=== PATIENT | male | born 1940 | race African-American/Black ===

== ENCOUNTER 2018-02-27 05:42 | Inpatient (IN) | payer MEDICARE, MEDICAID ==
[~2018-02-27] VITALS: Ht 180.3 cm; Wt 106.6 kg
[~2018-02-27 05:42] MED LIST: COLCRYS0.6 M1 PO; INDOMETHACIN75 MG ORAL
--- NOTE | 2018-02-27 06:25 | Emergency Room Report ---
History of Present Illness General Chief Complaint: Pain Source: Patient (Rick Guzman MD) Present Illness HPI Patient is a 77-year-old male who presented after increased right hand numbness. Patient reports having onset of symptoms approximate one half days ago. The patient denies any recent trauma. He reports being diabetic. He denies any chest discomfort or increased pain with exertion. He denies severe headache or neck pain.The patient edition reports having some medial right thigh pain for approximately 2 weeks but does not recall any recent injuries. (Rick Guzman MD) Allergies: Coded Allergies: NO KNOWN DRUG ALLERGIES (Unverified Allergy, Unknown, 01/24/15) Patient History Past Medical History: see triage record Reviewed Nursing Documentation: PMH: Agreed; PSxH: Agreed (Rick Guzman MD) Nursing Documentation-PMH Hx Hypertension: Yes Hx Diabetes: Yes (Rick Guzman MD) Review of Systems All Other Systems: negative except mentioned in HPI (Rick Guzman MD) Physical Exam Vital Signs Date Time Temp Pulse Resp B/P (MAP) Pulse Ox O2 Delivery O2 Flow Rate FiO2 02/27/18 05:44 97.6 57 16 135/68 96 Room Air 97.5 Sp02 EP Interpretation: reviewed, normal General Appearance: normal inspection, well appearing, no apparent distress, alert, GCS 15, non-toxic Head: atraumatic ENT: normal ENT inspection, hearing grossly normal, normal voice Neck: normal inspection, full range of motion, supple, no bony tend Respiratory: normal inspection, lungs clear, normal breath sounds, no respiratory distress, no retraction, no wheezing Cardiovascular #1: regular rate, rhythm, no edema Gastrointestinal: normal inspection, normal bowel sounds, non tender, soft, no guarding, no hernia Genitourinary: no CVA tenderness Musculoskeletal: normal inspection, back normal, normal range of motion Neurologic: normal inspection, alert, oriented x3, responsive, it engineer III-XII nml as tested, motor strength/tone normal, normal gait, speech normal, no pronator Psychiatric: normal inspection, judgement/insight normal, mood/affect normal Skin: normal inspection, normal color, no rash (Rick Guzman MD) Medical Decision Making Diagnostic Impression: Primary Impression: CVA (cerebral vascular accident) ER Course Patient presented for right hand paresthesias. Differential diagnosis included wasn't limited to CVA, intracranial hemorrhage, multiple sclerosis, the peripheral neuropathy, arterial occlusion among others. The CT imaging of the head was ordered due to patient's symptoms.EKG interpreted by me showed sinus bradycardia with a rate of [address] or T wave changes. (Rick Guzman MD) ER Course This patient was turned over to me by Dr. Guzman. Please see his full history and physical. Briefly, this patient had presented with a day of numbness in his right hand. He also had some right groin pain. He underwent CT of the head which was unremarkable. Given the patient's history, I was concerned for CVA, so I obtained an MRI brain. This did show a small acute lacunar infarct. The patient was given aspirin orally here in the emergency department. He is admitted to the telemetry floor for further monitoring and for further investigation of the etiology of CVA. Patient's laboratory workup is negative and noncontributory. He is admitted for further evaluation and treatment. Laboratory Tests Test 02/27/18 08:30 White Blood Count 9.9 K/UL (4.8-10.8) Red Blood Count 5.35 M/UL (4.70-6.10) Hemoglobin 15.8 G/DL (14.2-18.0) Hematocrit 45.4 % (42.0-52.0) Mean Corpuscular Volume 85 FL (80-99) Mean Corpuscular Hemoglobin 29.4 PG (27.0-31.0) Mean Corpuscular Hemoglobin Concent 34.7 G/DL (32.0-36.0) Red Cell Distribution Width 11.3 % (11.6-14.8) L Platelet Count 211 K/UL (150-450) Mean Platelet Volume 8.7 FL (6.5-10.1) Neutrophils (%) (Auto) 42.8 % (45.0-75.0) L Lymphocytes (%) (Auto) 44.7 % (20.0-45.0) Monocytes (%) (Auto) 8.0 % (1.0-10.0) Eosinophils (%) (Auto) 3.5 % (0.0-3.0) H Basophils (%) (Auto) 1.0 % (0.0-2.0) Prothrombin Time 9.9 SEC (9.30-11.50) Prothrombin Time INR 0.9 (0.9-1.1) PTT 27 SEC (23-33) Sodium Level 137 MMOL/L (136-145) Potassium Level 4.6 MMOL/L (3.5-5.1) Chloride Level 102 MMOL/L (98-107) Carbon Dioxide Level 30 MMOL/L (21-32) Anion Gap 5 mmol/L (5-15) Blood Urea Nitrogen 21 mg/dL (7-18) H Creatinine 1.1 MG/DL (0.55-1.30) Estimate Glomerular Filtration Rate mL/min (>60) Glucose Level 129 MG/DL (74-106) H Calcium Level 9.3 MG/DL (8.5-10.1) Total Bilirubin 0.3 MG/DL (0.2-1.0) Aspartate Amino Transferase (AST) 21 U/L (15-37) Alanine Aminotransferase (ALT) 29 U/L (12-78) Alkaline Phosphatase 102 U/L (46-116) Troponin I 0.017 ng/mL (0.000-0.056) Total Protein 8.2 G/DL (6.4-8.2) Albumin 3.4 G/DL (3.4-5.0) Globulin 4.8 g/dL Albumin/Globulin Ratio 0.7 (1.0-2.7) L (CHITRA HOLDER D.O.) EKG Diagnostic Results Rate: bradycardiac Rhythm: other - S.nicole ST Segments: no acute changes (CHITRA HOLDER D.O.) Rhythm Strip Diag. Results EP Interpretation: yes Rate: 50's Rhythm: no PVC's, no ectopy, other Other Impression S.nicole (CHITRA HOLDER D.O.) Last Vital Signs Date Time Temp Pulse Resp B/P (MAP) Pulse Ox O2 Delivery O2 Flow Rate FiO2 02/27/18 05:44 97.6 57 16 135/68 96 Room Air 97.5 (Rick Guzman MD) Disposition: ADMITTED INPATIENT Condition: Stable Referrals: NOT CHOSEN IPA/,REFERRING (PCP) Rick Guzman MD Feb 27, 2018 06:24 CHITRA HOLDER.OLena Feb 27, 2018 09:25
[2018-02-27 07:43] VITALS: BP 140/70
[2018-02-27 08:48] LABS: EOSINOPHILS % (AUTO) 3.5 % (0.0-3.0); HEMATOCRIT 45.4 % (42.0-52.0); HEMOGLOBIN 15.8 G/DL (14.2-18.0); LYMPHOCYTES % (AUTO) 44.7 % (20.0-45.0); MEAN CORPUSCULAR VOLUME 85 FL (80-99); NEUTROPHILS % (AUTO) 42.8 % (45.0-75.0); PLATELET COUNT 211 K/UL (150-450); RED BLOOD COUNT 5.35 M/UL (4.70-6.10); RED CELL DISTRIBUTION WIDTH 11.3 % (11.6-14.8); WHITE BLOOD COUNT 9.9 K/UL (4.8-10.8)
--- NOTE | 2018-02-27 08:53 | Diagnostic Imaging Report ---
Indications: Dizziness left arm numbness Technique: Spiral acquisitions obtained through the brain. Angled axial and coronal 5 x 5 mm slices were reconstructed. Total dose length product 1372.57 mGycm. CTDI vol(s) 70.38 mGy. Dose reduction achieved using automated exposure control Comparison: None. Findings: No acute intracranial hemorrhage or edema. No mass effect nor midline shift. There is periventricular deep white matter low-attenuation consistent with chronic ischemic change. There is age-related enlargement of the ventricles and extra-axial CSF spaces. Is evidence of prior bilateral cataract surgery. Visualized orbits and sinuses are otherwise unremarkable old lacunar infarcts are seen in the bilateral basal ganglia and the right deep white matter Impression: Chronic and age-related changes, as described. Negative for acute intracranial bleed or mass effect The CT scanner at [facility] is accredited by the [employer] and the scans are performed using protocols designed to limit radiation exposure to as low as reasonably achievable to attain images of sufficient resolution adequate for diagnostic evaluation.
--- NOTE | 2018-02-27 08:53 | Diagnostic Imaging Report ---
Indication: Weakness Technique: sagittal T1 fast spin echo, axial T1 FLAIR, axial T2 FLAIR, axial T2 FS PROPELLER, axial T2* GRE, sagittal T2 FLAIR, axial diffusion weighted images. ADC and exponential ADC maps generated Comparison: CT scan of one hour earlier Findings: There is a small focus of restricted diffusion in the left thalamus. This does not demonstrate any T2 abnormality No other foci of restricted diffusion to suggest acute infarction demonstrated. No acute hemorrhage nor edema. No mass effect nor midline shift. Multiple tiny old lacunar infarcts are seen in the bilateral basal ganglia and rothman radiata. There is age-related enlargement of the ventricles and extra-axial CSF spaces. There is considerable periventricular deep white matter high T2 signal. The vascular flow voids are preserved. Visualized sinuses are unremarkable. Is evidence of prior bilateral cataract surgery Impression: Positive for small acute lacunar infarct in the left thalamus Negative for acute intracranial bleed or mass effect Age-related volume loss Multiple old bilateral basal ganglia and bilateral rothman radiata lacunar infarcts There is extensive bilateral periventricular deep white matter T2 hyperintensity, most likely on the basis of chronic ischemic change. Demyelinating disease also a possibility but less likely
[2018-02-27 08:57] VITALS: BP 130/36
[2018-02-27 09:01] LABS: INR 0.9 (0.9-1.1)
[2018-02-27 09:06] LABS: ANION GAP 5 mmol/L (5-15); BLOOD UREA NITROGEN 21 mg/dL (7-18); CALCIUM 9.3 MG/DL (8.5-10.1); CARBON DIOXIDE 30 MMOL/L (21-32); CHLORIDE 102 MMOL/L (98-107); CREATININE 1.1 MG/DL (0.55-1.30); POTASSIUM 4.6 MMOL/L (3.5-5.1); SODIUM 137 MMOL/L (136-145)
[2018-02-27] MEDS ORDERED: UNOBMED (09:10)
[2018-02-27 09:11] LABS: ALANINE AMINOTRANSFERASE 29 U/L (12-78); ALBUMIN 3.4 G/DL (3.4-5.0); ALBUMIN/GLOBULIN RATIO 0.7 (1.0-2.7); ALKALINE PHOSPHATASE 102 U/L (46-116); ASPARTATE AMINO TRANSFERASE 21 U/L (15-37); BILIRUBIN,TOTAL 0.3 MG/DL (0.2-1.0)
[2018-02-27 10:04] VITALS: BP 134/64
[2018-02-27] MEDS ORDERED: NORVASC10 MG ORAL (10:41)
[2018-02-27] MEDS ORDERED: GLIPIZIDE10 MG PO (10:41)
[2018-02-27] MEDS ORDERED: Albuterol/Ipratropium 3ml neb HHN PRN (10:45)
--- NOTE | 2018-02-27 10:46 | Consultation ---
History of Present Illness General Date patient seen: Feb 27, 2018 Chief Complaint: Pain Present Illness HPI Patient is a 77-year-old male with hx of DM who presented after increased right hand numbness, approximate one half day prior to admission. The patient denies any recent trauma. He denies any chest discomfort or increased pain with exertion. He is admitted to telemetry for further work up. Allergies: Coded Allergies: NO KNOWN DRUG ALLERGIES (Unverified Allergy, Unknown, 01/24/15) Medication History Scheduled Amlodipine Besylate (Norvasc), 10 MG ORAL DAILY, (Reported) Colchicine (Colcrys), 0.6 MG PO ONCE Glipizide (Glipizide), 10 MG PO BIDAC, (Reported) Indomethacin* (Indomethacin*), 50 MG ORAL THREE TIMES A DAY Miscellaneous Medications Unable to Obtain Medications (Unable To Obtain Meds), (Reported) Patient History Healthcare decision maker Resuscitation status Advanced Directive on File Past Medical/Surgical History Past Medical/Surgical History: (1) Diabetes (2) History of acute gouty arthritis Review of Systems All Other Systems: negative except mentioned in HPI Physical Exam General Appearance: WD/WN Lines, tubes and drains: peripheral HEENT: normocephalic, atraumatic Neck: non-tender, normal alignment Respiratory/Chest: chest wall non-tender, lungs clear Cardiovascular/Chest: normal peripheral pulses Abdomen: normal bowel sounds Genitourinary/Rectal: normal genital exam Extremities: normal range of motion Skin Exam: normal pigmentation Neurologic: research program coordinator II-XII grossly normal Last 24 Hour Vital Signs Date Time Temp Pulse Resp B/P (MAP) Pulse Ox O2 Delivery O2 Flow Rate FiO2 02/27/18 10:12 97.5 59 17 130/36 98 Room Air 97.5 02/27/18 10:04 97.5 66 17 134/64 97 Room Air 97.5 02/27/18 08:57 97.5 59 17 130/36 98 Room Air 97.5 02/27/18 07:43 97.5 61 16 140/70 99 Room Air 97.5 02/27/18 05:44 97.6 57 16 135/68 96 Room Air 97.5 Intake and Output 02/26/18 02/27/18 19:00 07:00 Intake Total 0 ml Balance 0 ml Intake Oral 0 ml Laboratory Tests Test 6/7/18 08:30 White Blood Count 9.9 K/UL (4.8-10.8) Red Blood Count 5.35 M/UL (4.70-6.10) Hemoglobin 15.8 G/DL (14.2-18.0) Hematocrit 45.4 % (42.0-52.0) Mean Corpuscular Volume 85 FL (80-99) Mean Corpuscular Hemoglobin 29.4 PG (27.0-31.0) Mean Corpuscular Hemoglobin Concent 34.7 G/DL (32.0-36.0) Red Cell Distribution Width 11.3 % (11.6-14.8) L Platelet Count 211 K/UL (150-450) Mean Platelet Volume 8.7 FL (6.5-10.1) Neutrophils (%) (Auto) 42.8 % (45.0-75.0) L Lymphocytes (%) (Auto) 44.7 % (20.0-45.0) Monocytes (%) (Auto) 8.0 % (1.0-10.0) Eosinophils (%) (Auto) 3.5 % (0.0-3.0) H Basophils (%) (Auto) 1.0 % (0.0-2.0) Prothrombin Time 9.9 SEC (9.30-11.50) Prothromb Time International Ratio 0.9 (0.9-1.1) Activated Partial Thromboplast Time 27 SEC (23-33) Sodium Level 137 MMOL/L (136-145) Potassium Level 4.6 MMOL/L (3.5-5.1) Chloride Level 102 MMOL/L (98-107) Carbon Dioxide Level 30 MMOL/L (21-32) Anion Gap 5 mmol/L (5-15) Blood Urea Nitrogen 21 mg/dL (7-18) H Creatinine 1.1 MG/DL (0.55-1.30) Estimat Glomerular Filtration Rate mL/min (>60) Glucose Level 129 MG/DL (74-106) H Calcium Level 9.3 MG/DL (8.5-10.1) Total Bilirubin 0.3 MG/DL (0.2-1.0) Aspartate Amino Transf (AST/SGOT) 21 U/L (15-37) Alanine Aminotransferase (ALT/SGPT) 29 U/L (12-78) Alkaline Phosphatase 102 U/L (46-116) Troponin I 0.017 ng/mL (0.000-0.056) Total Protein 8.2 G/DL (6.4-8.2) Albumin 3.4 G/DL (3.4-5.0) Globulin 4.8 g/dL Albumin/Globulin Ratio 0.7 (1.0-2.7) L Height (Feet): 5 Height (Inches): 11.00 Weight (Pounds): 235 Medications Current Medications Medications (Trade) Dose Ordered Sig/Raji Route PRN Reason Start Time Stop Time Status Last Admin Dose Admin Acetaminophen (Tylenol) 650 mg Q4H PRN ORAL fever 02/27/18 10:45 03/29/18 10:44 UNV Albuterol/ Ipratropium (Albuterol/ Ipratropium) 3 ml EVERY 4 HOURS PRN HHN Shortness of Breath 02/27/18 10:45 03/04/18 10:44 UNV Clonidine HCl (Catapres Tab) 0.1 mg Q4H PRN ORAL For High Blood Pressure 02/27/18 10:45 03/29/18 10:44 UNV Dextrose (Dextrose 50%) STAT PRN IV Hypoglycemia 02/27/18 10:45 03/29/18 10:44 UNV Dextrose (Dextrose 50%) STAT PRN IV Hypoglycemia 02/27/18 10:45 03/29/18 10:44 UNV Heparin Sodium (Porcine) (Heparin 5000 units/ml) 5,000 units EVERY 12 HOURS SUBQ 02/27/18 21:00 03/29/18 20:59 UNV Insulin Aspart (NovoLOG) BEFORE MEALS AND HS SUBQ 02/27/18 11:30 03/29/18 11:29 UNV Nitroglycerin (Ntg) 0.4 mg Q5M X 3 DOSES PRN SL Prn Chest Pain 02/27/18 10:45 03/29/18 10:44 UNV Ondansetron HCl (Zofran) 4 mg Q6H PRN IVP Nausea & Vomiting 02/27/18 10:45 03/29/18 10:44 UNV Polyethylene Glycol (Miralax) 17 gm HSPRN PRN ORAL Constipation 02/27/18 10:45 03/29/18 10:44 UNV Promethazine HCl/ Codeine (Phenergan with Codeine) 5 ml Q4H PRN ORAL For Cough 02/27/18 10:45 03/29/18 10:44 UNV Temazepam (Restoril) 15 mg HSPRN PRN ORAL Insomnia 02/27/18 10:45 03/06/18 10:44 UNV Assessment/Plan Problem List: (1) CVA (cerebral vascular accident) ICD Codes: I63.9 - Cerebral infarction, unspecified SNOMED: 205290168 (2) Diabetes ICD Codes: E11.9 - Type 2 diabetes mellitus without complications SNOMED: 37183860 (3) History of acute gouty arthritis ICD Codes: Z87.39 - Personal history of other diseases of the musculoskeletal system and connective tissue SNOMED: 596286699 Assessment/Plan telemetry monitoring echo doppler of carotid artery sliding scale diabetic diet pt/ot dvt prophylaxis symptomatic treatment Torrie Pak MD Feb 27, 2018 10:46
[2018-02-27] MEDS ORDERED: Promethazine/Codeine 5ml UD ORAL PRN (11:00)
[2018-02-27] MEDS ORDERED: Nitroglycerin Subl 0.4mg tab SL PRN (11:00)
[2018-02-27] MEDS: NovoLOG Insulin Flexpen SUBQ SCH ×3 (11:30→20:35)
[2018-02-27] MEDS: Norco 5mg/325mg tab ORAL PRN ×2 (13:08→20:32)
[2018-02-27] MEDS ORDERED: Enoxaparin 30mg Inj SUBQ SCH (16:00)
[2018-02-27] MEDS: Enoxaparin 80mg Inj SUBQ SCH (16:42)
--- NOTE | 2018-02-27 18:55 | Consultation ---
Consult Note Consult Note NEUROLOGY CONSULTATION: Full note dictated #[id number] 77 y/o, RH, BM with PH of HTN, DM, DL who for the last 2-3 days has had right groin pain from a muscle strain. Yesterday night at ~ 10 PM he noted an unusual sensation in the right upper extremity in an opera length glove distribution. The problem continued when he woke up this morning at ~5 AM and he thus came into the [facility] ER. A brain MRI was done and it reveled an acute stroke. He feels better now. ON EXAM: Shifting exophoria. Globally diminished DTRs. Limp on right leg due to groin pain. IMPRESSION: Acute left thalamic infarct. 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 Hypertensive/diabetic/dyslipidemic CVD. REC: Rx of Hypertensive/diabetic/dyslipidemic risk factors. Observe. Kevon Cruz M.D., M.S.P.H. KEVON CRUZ Feb 27, 2018 18:55
--- NOTE | 2018-02-27 19:00 | History and Physical Report ---
DATE OF ADMISSION: 02/27/2018 CONSULTANTS: 1. Miles Cruz M.D. 2. Torrie Pak M.D. CHIEF COMPLAINT: Weakness in the right arm, lacunar infarct, and CVA. BRIEF HISTORY: The patient is a 77-year-old male, who lives at home, presents with 1-day history of increased weakness on the right hand. It persisted. The patient came in today to [facility], diagnosed with small lacunar infarct, and CVA, admitted to telemetry for further care. Currently calm, sitting in bed, weakness has somewhat resolved, and he is eating. No complaint. PAST MEDICAL HISTORY: Hypertension and diabetes. PAST SURGICAL HISTORY: Abdominal hernia. MEDICATIONS: Norvasc, heparin, MiraLAX, Restoril, Jar[place], NovoLog, Zofran, nitroglycerin, Phenergan with Codeine, albuterol, Tylenol, Catapres, and aspirin. ALLERGIES: Denies. SOCIAL HISTORY: No smoking. No alcohol. No intravenous drug abuse. FAMILY HISTORY: Noncontributory. REVIEW OF SYSTEMS: No chest pain. No shortness of breath. No nausea, vomiting, or diarrhea. PHYSICAL EXAMINATION: GENERAL: Calm in bed, oriented x3, no acute distress. VITAL SIGNS: Temperature is 97 degrees, pulse 59, respirations 17, and blood pressure 130/36. CARDIOVASCULAR: No murmur. LUNGS: Distant and clear. ABDOMEN: Bowel sounds positive. Nontender and nondistended. EXTREMITIES: No cyanosis, clubbing, or edema. NEUROLOGIC: The patient moves all extremities, slightly weak x4. LABORATORY AND DIAGNOSTIC DATA: CBC is normal. BMP shows BUN 21, glucose 129, troponin 0.017, otherwise, BMP is normal. INR is 0.9 and PTT is 27. ASSESSMENT: 1. Right arm weakness. 2. Small lacunar infarct. 3. Cerebrovascular accident. 4. Diabetes. 5. Hypertension. 6. Arthritis. 7. Gout. PLAN: Blood pressure and blood sugar control. Neurology followup. OT, PT, and dietary evaluation. CBC and BMP in the morning. We will continue to follow this patient. Kasi Pimentel D.O. DR: DG JOB#: [id number] CC:
[2018-02-27 20:00] VITALS: BP 143/81
[2018-02-27] MEDS ORDERED: Isovue-370 150ml vial INJ PRN ×2 (20:00)
[2018-02-27] MEDS ORDERED: Heparin 5000 units/ml inj SUBQ SCH (21:00)
[2018-02-27] MEDS ORDERED: Miralax 17gm pkt ORAL PRN (21:00)
--- NOTE | 2018-02-27 21:29 | Consultation ---
DATE OF CONSULTATION: 02/27/2018 NEUROLOGY CONSULTATION CONSULTING PHYSICIAN: Miles Cruz M.D. REQUESTING PHYSICIAN: Kasi Pimentel D.O. HISTORY: Mr Sesar Espinal is a 77-year-old, right-handed, black gentleman, who does have a past history of hypertension, diabetes mellitus, and dyslipidemia. He has been taking care of his hypertension and diabetes relatively well, but says that he takes his cholesterol medicine off and on. He was functioning relatively well until 2 to 3 days ago when he pulled a muscle in his right groin and has had some right groin pain and problems walking. Then, yesterday at approximately 10 p.m., he suddenly noticed an unusual sensation in his right upper extremity that started in his fingers and went all the way to his elbow. It was a sensation of tingling, numbness and discomfort. He went to sleep and on awakening this morning at approximately 5 a.m., he continued to have similar symptoms. As a result of that, he came into the [facility] emergency room. He was evaluated in the emergency room with CT scan of the brain at first, which revealed no acute pathology, but then an MRI scan was done and revealed an acute stroke. At this point in time, he feels much better, the altered sensation is now more patchy in his right upper extremity and seems to be getting better. He denies any associated weakness on one side or the other, problems with speech, problems with language, problems with vision, problems with memory, or any other neurological symptoms. He also denies any similar symptoms in the past. PAST MEDICAL HISTORY: Significant for hypertension, diabetes mellitus, dyslipidemia, hernia surgery, and a squint since he was a child. FAMILY HISTORY: Significant for high blood pressure and diabetes mellitus in other family members. PERSONAL HISTORY: Home: He lives with his son. 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 Habits: He denies use of alcohol, tobacco, or illicit drugs. MEDICATIONS: Amlodipine, MiraLAX, Restoril, Lovenox, [place], insulin, Zofran, nitroglycerin, DuoNeb inhaler p.r.n., Phenergan with Codeine p.r.n., Tylenol p.r.n., and aspirin 325 mg that was given to him as a single dose. PHYSICAL EXAMINATION: GENERAL: He is a well-developed, well-nourished, slightly obese, black gentleman, lying in bed, in no acute distress. VITAL SIGNS: Pulse 54/minute and regular, blood pressure 130/36 mmHg, respirations 20/minute, and temperature 97.5 degrees Fahrenheit. HEAD: Normocephalic and atraumatic. EENT: Examination benign. NECK: No neck rigidity was observed. NEUROLOGIC EXAMINATION: MENTAL STATUS EXAMINATION: He was awake and alert. He was oriented to person, place, and time. He was able to recall 3/3 words immediately, after 1 minute and after 3 minutes on the second trial. He was able to remember presidents, Trump and Obama, but could not remember presidents prior to that. His mathematical skills were impaired. His visuospatial function was also impaired. SPEECH: He had no dysarthria. LANGUAGE: He had no aphasia. CRANIAL NERVE EXAMINATION: II: The visual duran were intact on confrontation testing. III, IV & : He had a shifting exophoria, but both eyes moved relatively well when tested individually. V: He had normal facial sensations and the temporales, masseters, and pterygoids functioned normally. VII: He had normal facial expressions and no facial asymmetry. VIII: He was able to hear well bilaterally and had no nystagmus. IX: The palate moved symmetrically on phonation. X: He had no hoarseness of voice. XI: The sternocleidomastoids and trapezii functioned normally. XII: The tongue was in the midline without any fasciculations or atrophy. MOTOR SYSTEM: The tone was normal in all four extremities. Examination of muscle mass revealed no focal wasting. Examination of power revealed grade 5/5 power. SENSORY EXAMINATION: He had intact sensations to pinprick, light touch, and graphesthesia. COORDINATION: He performed well on [id number] and [id number] testing. REFLEXES: Trace+ and bilaterally symmetrical at the biceps, triceps, brachioradialis, and knees, 0 at both ankles. The plantar responses were flexor bilaterally. STANCE: He had a normal stance. GAIT: He tended to drag his right leg when he walked, which he attributed to pain in his right groin. DIAGNOSTIC IMPRESSION: 1. Mr Sesar Espinal is a 77-year-old, right-handed, black gentleman, who does have a past history of hypertension, diabetes mellitus, and dyslipidemia. He apparently has not been taking care of his dyslipidemia, but says that he is controlling his high blood pressure and diabetes mellitus with medicines. In the early hours of last night, he suddenly developed right upper extremity altered sensation, which continued when he woke up this morning. As a result of that, he came to the hospital. At this point in time, the discomfort has improved significantly. 2. On neurological examination at this time, he does have a shifting exophoria, globally diminished deep tendon reflexes and a limp on the right side due to right groin pain. 3. The MRI scan of the brain reveals a small left thalamic infarct, but no other acute pathology. 4. Laboratory data obtained thus far revealed a relatively normal CBC, a relatively normal chemistry panel except for glucose elevated to 129 and BUN elevated to 21 and an INR of 0.9. 5. The patient's history, neurological examination, and laboratory data are most compatible with an acute left thalamic infarct causing dysesthesias involving his right upper extremity in an opera length glove distribution, which has now improved significantly. 6. The etiology for the infarct would be a small end artery occlusion. 7. The etiology for the small end artery occlusion would be hypertensive, diabetic, dyslipidemic, cerebrovascular disease. RECOMMENDATIONS: 1. The patient was given an explanation of the above-mentioned findings. 2. He should be treated aggressively for his small blood vessel cerebrovascular disease. His blood pressure goal should be equal to or less than 120/80 mmHg, his diabetic goal should be a hemoglobin A1c of less than 6% and his dyslipidemic goal should be an LDL of less than 70. 3. The patient will be started on Plavix 75 mg daily for secondary stroke prevention. 4. He was also encouraged to lose some weight over time. 5. He should be observed for the next day or so, and depending on how he fairs, further recommendations will be given. Thank you for entrusting me with the care of Mr. Kaba. I shall follow him with you. Miles Cruz M.D., M.S.P.H. DR: SAMIR JOB#: [id number] [id number]
[2018-02-28] VITALS: BP 125/64
[2018-02-28] MEDS: Norco 5mg/325mg tab ORAL PRN ×5 (00:32→19:37)
[2018-02-28 04:00] VITALS: BP 137/66
[2018-02-28] MEDS: NovoLOG Insulin Flexpen SUBQ SCH ×4 (06:23→21:00)
[2018-02-28 07:47] LABS: EOSINOPHILS % (AUTO) 3.6 % (0.0-3.0); HEMATOCRIT 41.2 % (42.0-52.0); HEMOGLOBIN 14.5 G/DL (14.2-18.0); LYMPHOCYTES % (AUTO) 51.4 % (20.0-45.0); MEAN CORPUSCULAR VOLUME 84 FL (80-99); MONOCYTES % (AUTO) 9.5 % (1.0-10.0); NEUTROPHILS % (AUTO) 34.5 % (45.0-75.0); PLATELET COUNT 193 K/UL (150-450); RED BLOOD COUNT 4.89 M/UL (4.70-6.10); RED CELL DISTRIBUTION WIDTH 11.1 % (11.6-14.8); WHITE BLOOD COUNT 7.8 K/UL (4.8-10.8)
[2018-02-28 07:58] LABS: ALANINE AMINOTRANSFERASE 27 U/L (12-78); ALBUMIN 2.9 G/DL (3.4-5.0); ALBUMIN/GLOBULIN RATIO 0.7 (1.0-2.7); ALKALINE PHOSPHATASE 90 U/L (46-116); ANION GAP 9 mmol/L (5-15); ASPARTATE AMINO TRANSFERASE 21 U/L (15-37); BILIRUBIN,TOTAL 0.3 MG/DL (0.2-1.0); BLOOD UREA NITROGEN 16 mg/dL (7-18); CALCIUM 8.7 MG/DL (8.5-10.1); CARBON DIOXIDE 26 MMOL/L (21-32); CHLORIDE 103 MMOL/L (98-107); CHOLESTEROL 182 MG/DL (< 200); CREATININE 0.9 MG/DL (0.55-1.30); HDL CHOLESTEROL 52 MG/DL (40-60); POTASSIUM 3.7 MMOL/L (3.5-5.1); SODIUM 138 MMOL/L (136-145); TRIGLYCERIDES 75 MG/DL (30-150)
[2018-02-28 08:00] VITALS: BP 132/57
[2018-02-28] MEDS: Enoxaparin 80mg Inj SUBQ SCH ×2 (10:11→21:27)
--- NOTE | 2018-02-28 11:49 | Diagnostic Imaging Report ---
Indication: CVA and focal weakness. Increasing weakness in the right hand. Technique: Continuous helical transaxial imaging of the neck was obtained from the aortic arch to the skull base during rapid intravenous contrast administration. Arterial phase of enhancement obtained. Coronal 2-D reformats were also obtained and maximum intensity projection images in multiple planes. Study obtained in a Siemens sensation [address] Automatic Exposure Control was utilized. Total Dose length Product (DLP): [address] Dose Index Volume (CTDIvol): 0.17, 0.17, 16.5, 16.5, 198, 58.86 mGy Comparison: None Findings: There is a high-grade stenosis demonstrated at the origin of the left ICA estimated at about 70%. There is also a moderate to high-grade stenosis demonstrated within the mid common carotid artery on the left side. This is estimated at 60%. There is mild calcific plaque at the origin of the right ICA. Stenosis is mild estimated at 40%. The remainder of the visualized portion of the ICA which is below the skull base appears widely patent. Both vertebral arteries are identified. No stenosis identified. There is some artifact at the level of the thoracic aorta. There is narrowing of intervertebral discs and accompanying endplate osteophyte formation. Hypertrophied facet joints also demonstrated.. Mild paraseptal bleb formation noted at the lung apices. IMPRESSION: 70-80% high-grade stenosis estimated within the proximal left ICA due to calcific plaque. 60-70% moderate to high-grade stenosis suspected within the mid left common carotid artery. 40% mild stenosis estimated at the origin of the right ICA. Widely patent vertebral arteries. Other incidental findings as above The CT scanner at [facility] is accredited by the [employer] and the scans are performed using dose optimization techniques as appropriate to a performed exam including Automatic Exposure control.
--- NOTE | 2018-02-28 12:32 | Cardiology Report ---
APPROVED REPORT EKG Measurement Heart [id number] Sinus bradycardia Nonspecific T wave abnormality Abnormal ECG
--- NOTE | 2018-02-28 12:40 | Pulmonology Progress Note ---
Assessment/Plan Problems: (1) CVA (cerebral vascular accident) (2) Diabetes (3) History of acute gouty arthritis Assessment/Plan MRI Impression: Positive for small acute lacunar infarct in the left thalamus CT angio Neck IMPRESSION: 70-80% high-grade stenosis estimated within the proximal left ICA due to calcific plaque. 60-70% moderate to high-grade stenosis suspected within the mid left common carotid artery. cardio to see the pt for clearance Vascular saw the patient monitor BP anti PLT agent as per Neuro Subjective Allergies: Coded Allergies: NO KNOWN DRUG ALLERGIES (Unverified Allergy, Unknown, 01/24/15) Objective Last 24 Hour Vital Signs Date Time Temp Pulse Resp B/P (MAP) Pulse Ox O2 Delivery O2 Flow Rate FiO2 02/28/18 11:13 97.0 02/28/18 10:10 67 132/57 02/28/18 08:05 67 20 Room Air 21 02/28/18 08:00 97.0 46 19 132/57 98 Room Air 97.0 02/28/18 04:00 48 02/28/18 04:00 97.7 50 18 137/66 98 Room Air 97.7 02/28/18 00:00 97.7 57 19 125/64 98 Room Air 97.7 02/28/18 00:00 57 02/27/18 20:00 52 02/27/18 20:00 98.1 52 18 143/81 94 Room Air 98.1 02/27/18 16:25 54 20 Room Air 21 02/27/18 16:00 49 Intake and Output 02/27/18 02/28/18 19:00 07:00 Intake Total 360 ml 240 ml Output Total 775 ml Balance 360 ml -535 ml Intake Oral 360 ml 240 ml Output Urine Total 775 ml # Voids 2 2 Laboratory Tests 02/28/18 06:05: White Blood Count 7.8, Red Blood Count 4.89, Hemoglobin 14.5, Hematocrit 41.2L, Mean Corpuscular Volume 84, Mean Corpuscular Hemoglobin 29.5, Mean Corpuscular Hemoglobin Concent 35.1, Red Cell Distribution Width 11.1L, Platelet Count 193, Mean Platelet Volume 8.4, Neutrophils (%) (Auto) 34.5L, Lymphocytes (%) (Auto) 51.4H, Monocytes (%) (Auto) 9.5, Eosinophils (%) (Auto) 3.6H, Basophils (%) ( Auto) 1.0, Prothrombin Time 10.3, Prothromb Time International Ratio 1.0, Activated Partial Thromboplast Time 29, Sodium Level 138, Potassium Level 3.7, Chloride Level 103, Carbon Dioxide Level 26, Anion Gap 9, Blood Urea Nitrogen 16 , Creatinine 0.9, Estimat Glomerular Filtration Rate , Glucose Level 99, Calcium Level 8.7, Total Bilirubin 0.3, Aspartate Amino Transf (AST/SGOT) 21, Alanine Aminotransferase (ALT/SGPT) 27, Alkaline Phosphatase 90, Total Protein 7.3, Albumin 2.9L, Globulin 4.4, Albumin/Globulin Ratio 0.7L, Triglycerides Level 75, Cholesterol Level 182, LDL Cholesterol 135H, HDL Cholesterol 52, Cholesterol/HDL Ratio 3.5, Thyroid Stimulating Hormone (TSH) 2.357 Current Medications Medications (Trade) Dose Ordered Sig/Raji Route PRN Reason Start Time Stop Time Status Last Admin Dose Admin Acetaminophen (Tylenol) 650 mg Q4H PRN ORAL fever 02/27/18 10:45 03/29/18 10:44 Acetaminophen/ Hydrocodone Bitart ([place] 5/325) 1 tab Q4H PRN ORAL Severe Pain (Pain Scale 7-10) 02/27/18 12:15 03/06/18 12:14 02/28/18 10:14 Albuterol/ Ipratropium (Albuterol/ Ipratropium) 3 ml Q4H PRN HHN Shortness of Breath 02/27/18 10:45 03/04/18 10:44 Amlodipine Besylate (Norvasc) 10 mg DAILY ORAL 02/28/18 09:00 03/30/18 08:59 02/28/18 10:10 Clonidine HCl (Catapres Tab) 0.1 mg Q4H PRN ORAL For High Blood Pressure 02/27/18 10:45 03/29/18 10:44 Clopidogrel Bisulfate (Plavix) 75 mg Q24H ORAL 02/27/18 20:00 03/29/18 19:59 02/27/18 20:31 Dextrose (Dextrose 50%) 25 ml STAT PRN IV Hypoglycemia 02/27/18 10:45 03/29/18 10:44 Dextrose (Dextrose 50%) 50 ml STAT PRN IV Hypoglycemia 02/27/18 10:45 03/29/18 10:44 Enoxaparin Sodium (Lovenox) 80 mg Q12HR SUBQ 02/27/18 16:00 03/29/18 15:59 02/28/18 10:11 Insulin Aspart (NovoLOG) BEFORE MEALS AND HS SUBQ 02/27/18 11:30 03/29/18 11:29 02/27/18 16:43 Iopamidol (Isovue-370 150ml) 150 ml NOW PRN INJ Radiology Procedure 02/27/18 20:00 03/01/18 19:56 Iopamidol (Isovue-370 150ml) 150 ml NOW PRN INJ Radiology Procedure 02/27/18 20:00 03/01/18 19:56 Nitroglycerin (Ntg) 0.4 mg Q5M X 3 DOSES PRN SL Prn Chest Pain 02/27/18 11:00 03/29/18 10:59 Ondansetron HCl (Zofran) 4 mg Q6H PRN IVP Nausea & Vomiting 02/27/18 11:00 03/29/18 10:59 Polyethylene Glycol (Miralax) 17 gm HSPRN PRN ORAL Constipation 02/27/18 21:00 03/29/18 20:59 Promethazine HCl/ Codeine (Phenergan with Codeine) 5 ml Q4H PRN ORAL For Cough 02/27/18 11:00 03/29/18 10:59 Temazepam (Restoril) 15 mg HSPRN PRN ORAL Insomnia 02/27/18 21:00 03/06/18 20:59 Torrie Pak MD Feb 28, 2018 12:40
--- NOTE | 2018-02-28 13:42 | Cardiology Report ---
APPROVED REPORT EXAM: Two-dimensional and M-mode echocardiogram with Doppler and color Doppler. INDICATION LV FUNCTION M-Mode DIMENSIONS IVSd1.4 (0.7-1.1cm)Left Atrium (MM)4.2 (1.6-4.0cm) LVDd5.5 (3.5-5.6cm)Aortic Root4.2 (2.0-3.7cm) PWd1.3 (0.7-1.1cm)Aortic Cusp Exc.2.1 (1.5-2.0cm) IVSs1.9 cm LVDs3.8 (2.5-4.0cm) PWs2.3 cm Technically difficult study due to poor acoustical windows. Normal left ventricular chamber size, systolic function and wall motion. Left ventricular ejection fraction estimated to be 60-65 %. Mild left ventricular hypertrophy by 2-D. No evidence of pericardial effusion. Mild Left atrial enlargement. Right cardiac chamber sizes are within normal limits. Mildly Focal aortic valve sclerosis with normal cusp excursion. Mildly Thickened mitral valve leaflets with normal excursion. Mitral annulus and aortic root calcification. Pulmonic valve not well visualized. Normal tricuspid valve structure. IVC at normal size with physiologic collapse. A color flow and spectral Doppler study was performed and revealed: No aortic regurgitation. Trace mitral regurgitation. Normal left ventricular diastolic function . Trace tricuspid regurgitation. Tricuspid systolic velocities suggests peak right ventricular systolic pressure of 22 mmHg, No Pulmonic regurgitation present.
--- NOTE | 2018-02-28 14:21 | Consultation ---
History of Present Illness General Date patient seen: Feb 28, 2018 Chief Complaint: Pain Present Illness HPI Patient with HTN, HLD, DM, CVA admitted for RUL numbness and found to have CVA. Carotid US shows high grade stenosis. Cardiology consulted for surgical clearance. No chest pain or shortness of breath Allergies: Coded Allergies: NO KNOWN DRUG ALLERGIES (Unverified Allergy, Unknown, 01/24/15) Medication History Scheduled Amlodipine Besylate (Norvasc), 10 MG ORAL DAILY, (Reported) Colchicine (Colcrys), 0.6 MG PO ONCE Glipizide (Glipizide), 10 MG PO BIDAC, (Reported) Indomethacin* (Indomethacin*), 50 MG ORAL THREE TIMES A DAY Miscellaneous Medications Unable to Obtain Medications (Unable To Obtain Meds), (Reported) Patient History Healthcare decision maker Resuscitation status Full Code Advanced Directive on File Review of Systems Constitutional: Reports: no symptoms Eye: Reports: no symptoms ENT: Reports: no symptoms Respiratory: Reports: no symptoms Cardiovascular: Reports: no symptoms Gastrointestinal: Reports: no symptoms Genitourinary: Reports: no symptoms Musculoskeletal: Reports: no symptoms Skin: Reports: no symptoms Neurological: Reports: numbness, paresthesia Endocrine: Reports: no symptoms Hematologic/Lymphatic: Reports: no symptoms Physical Exam General Appearance: no apparent distress Lines, tubes and drains: peripheral HEENT: normocephalic Neck: non-tender Respiratory/Chest: chest wall non-tender Cardiovascular/Chest: normal peripheral pulses Abdomen: normal bowel sounds Extremities: normal range of motion Neurologic: baffle mounter II-XII grossly normal Last 24 Hour Vital Signs Date Time Temp Pulse Resp B/P (MAP) Pulse Ox O2 Delivery O2 Flow Rate FiO2 02/28/18 11:13 97.0 02/28/18 10:10 67 132/57 02/28/18 08:11 46 02/28/18 08:05 67 20 Room Air 21 02/28/18 08:00 97.0 46 19 132/57 98 Room Air 97.0 02/28/18 04:00 48 02/28/18 04:00 97.7 50 18 137/66 98 Room Air 97.7 02/28/18 00:00 97.7 57 19 125/64 98 Room Air 97.7 02/28/18 00:00 57 02/27/18 20:00 52 02/27/18 20:00 98.1 52 18 143/81 94 Room Air 98.1 02/27/18 16:25 54 20 Room Air 21 02/27/18 16:00 49 Intake and Output 02/27/18 02/28/18 19:00 07:00 Intake Total 360 ml 240 ml Output Total 775 ml Balance 360 ml -535 ml Intake Oral 360 ml 240 ml Output Urine Total 775 ml # Voids 2 2 Laboratory Tests Test 02/28/18 06:05 White Blood Count 7.8 K/UL (4.8-10.8) Red Blood Count 4.89 M/UL (4.70-6.10) Hemoglobin 14.5 G/DL (14.2-18.0) Hematocrit 41.2 % (42.0-52.0) L Mean Corpuscular Volume 84 FL (80-99) Mean Corpuscular Hemoglobin 29.5 PG (27.0-31.0) Mean Corpuscular Hemoglobin Concent 35.1 G/DL (32.0-36.0) Red Cell Distribution Width 11.1 % (11.6-14.8) L Platelet Count 193 K/UL (150-450) Mean Platelet Volume 8.4 FL (6.5-10.1) Neutrophils (%) (Auto) 34.5 % (45.0-75.0) L Lymphocytes (%) (Auto) 51.4 % (20.0-45.0) H Monocytes (%) (Auto) 9.5 % (1.0-10.0) Eosinophils (%) (Auto) 3.6 % (0.0-3.0) H Basophils (%) (Auto) 1.0 % (0.0-2.0) Prothrombin Time 10.3 SEC (9.30-11.50) Prothromb Time International Ratio 1.0 (0.9-1.1) Activated Partial Thromboplast Time 29 SEC (23-33) Sodium Level 138 MMOL/L (136-145) Potassium Level 3.7 MMOL/L (3.5-5.1) Chloride Level 103 MMOL/L (98-107) Carbon Dioxide Level 26 MMOL/L (21-32) Anion Gap 9 mmol/L (5-15) Blood Urea Nitrogen 16 mg/dL (7-18) Creatinine 0.9 MG/DL (0.55-1.30) Estimat Glomerular Filtration Rate mL/min (>60) Glucose Level 99 MG/DL (74-106) Calcium Level 8.7 MG/DL (8.5-10.1) Total Bilirubin 0.3 MG/DL (0.2-1.0) Aspartate Amino Transf (AST/SGOT) 21 U/L (15-37) Alanine Aminotransferase (ALT/SGPT) 27 U/L (12-78) Alkaline Phosphatase 90 U/L (46-116) Total Protein 7.3 G/DL (6.4-8.2) Albumin 2.9 G/DL (3.4-5.0) L Globulin 4.4 g/dL Albumin/Globulin Ratio 0.7 (1.0-2.7) L Triglycerides Level 75 MG/DL (30-150) Cholesterol Level 182 MG/DL (< 200) LDL Cholesterol 135 mg/dL (<100) H HDL Cholesterol 52 MG/DL (40-60) Cholesterol/HDL Ratio 3.5 (3.3-4.4) Thyroid Stimulating Hormone (TSH) 2.357 uiU/mL (0.358-3.740) Height (Feet): 5 Height (Inches): 11.00 Weight (Pounds): 235 Medications Current Medications Medications (Trade) Dose Ordered Sig/Raji Route PRN Reason Start Time Stop Time Status Last Admin Dose Admin Acetaminophen (Tylenol) 650 mg Q4H PRN ORAL fever 02/27/18 10:45 03/29/18 10:44 Acetaminophen/ Hydrocodone Bitart ([place] 5/325) 1 tab Q4H PRN ORAL Severe Pain (Pain Scale 7-10) 02/27/18 12:15 03/06/18 12:14 02/28/18 10:14 Albuterol/ Ipratropium (Albuterol/ Ipratropium) 3 ml Q4H PRN HHN Shortness of Breath 02/27/18 10:45 03/04/18 10:44 Amlodipine Besylate (Norvasc) 10 mg DAILY ORAL 02/28/18 09:00 03/30/18 08:59 02/28/18 10:10 Clonidine HCl (Catapres Tab) 0.1 mg Q4H PRN ORAL For High Blood Pressure 6/7/18 10:45 03/29/18 10:44 Clopidogrel Bisulfate (Plavix) 75 mg Q24H ORAL 02/27/18 20:00 03/29/18 19:59 02/27/18 20:31 Dextrose (Dextrose 50%) 25 ml STAT PRN IV Hypoglycemia 02/27/18 10:45 03/29/18 10:44 Dextrose (Dextrose 50%) 50 ml STAT PRN IV Hypoglycemia 02/27/18 10:45 03/29/18 10:44 Enoxaparin Sodium (Lovenox) 80 mg Q12HR SUBQ 02/27/18 16:00 03/29/18 15:59 02/28/18 10:11 Insulin Aspart (NovoLOG) BEFORE MEALS AND HS SUBQ 02/27/18 11:30 03/29/18 11:29 02/28/18 13:57 Iopamidol (Isovue-370 150ml) 150 ml NOW PRN INJ Radiology Procedure 02/27/18 20:00 03/01/18 19:56 Iopamidol (Isovue-370 150ml) 150 ml NOW PRN INJ Radiology Procedure 02/27/18 20:00 03/01/18 19:56 Nitroglycerin (Ntg) 0.4 mg Q5M X 3 DOSES PRN SL Prn Chest Pain 02/27/18 11:00 03/29/18 10:59 Ondansetron HCl (Zofran) 4 mg Q6H PRN IVP Nausea & Vomiting 02/27/18 11:00 03/29/18 10:59 Polyethylene Glycol (Miralax) 17 gm HSPRN PRN ORAL Constipation 02/27/18 21:00 03/29/18 20:59 Promethazine HCl/ Codeine (Phenergan with Codeine) 5 ml Q4H PRN ORAL For Cough 02/27/18 11:00 03/29/18 10:59 Temazepam (Restoril) 15 mg HSPRN PRN ORAL Insomnia 02/27/18 21:00 03/06/18 20:59 Assessment/Plan Status: stable Assessment/Plan CVA HTN DM Carotid US 1) Aspirin for CAD 2) Plavix for CVA 3) High dose statin 4) BP control 5) Patient will need stress test for cardiac assessment of risk factors prior to surgery Matthew Serrano M.D. Feb 28, 2018 14:21
--- NOTE | 2018-02-28 16:13 | General Progress Note ---
Assessment/Plan Problem List: (1) HTN (hypertension) ICD Codes: I10 - Essential (primary) hypertension SNOMED: 81107523 (2) DVT (deep vein thrombosis) in ICD Codes: O22.30 - Deep phlebothrombosis in , unspecified trimester; I82.409 - Acute embolism and thrombosis of unspecified deep veins of unspecified lower extremity SNOMED: 34498729, 436204400 (3) Carotid stenosis ICD Codes: I65.29 - Occlusion and stenosis of unspecified carotid artery SNOMED: 01626502 (4) Diabetes ICD Codes: E11.9 - Type 2 diabetes mellitus without complications SNOMED: 26152858 (5) History of acute gouty arthritis ICD Codes: Z87.39 - Personal history of other diseases of the musculoskeletal system and connective tissue SNOMED: 787132406 (6) CVA (cerebral vascular accident) ICD Codes: I63.9 - Cerebral infarction, unspecified SNOMED: 217789749 Status: unchanged Assessment/Plan pt diet anticoag prn cbc bmp am cardio clearance for vasc procedure Subjective Constitutional: Reports: weakness Allergies: Coded Allergies: NO KNOWN DRUG ALLERGIES (Unverified Allergy, Unknown, 01/24/15) All Systems: reviewed and negative except above Subjective sitting calm Objective Last 24 Hour Vital Signs Date Time Temp Pulse Resp B/P (MAP) Pulse Ox O2 Delivery O2 Flow Rate FiO2 02/28/18 11:55 88 02/28/18 11:13 97.0 02/28/18 10:10 67 132/57 02/28/18 08:11 46 02/28/18 08:05 67 20 Room Air 21 02/28/18 08:00 97.0 46 19 132/57 98 Room Air 97.0 02/28/18 04:00 48 02/28/18 04:00 97.7 50 18 137/66 98 Room Air 97.7 02/28/18 00:00 97.7 57 19 125/64 98 Room Air 97.7 02/28/18 00:00 57 02/27/18 20:00 52 02/27/18 20:00 98.1 52 18 143/81 94 Room Air 98.1 02/27/18 16:25 54 20 Room Air 21 Intake and Output 02/27/18 02/28/18 19:00 07:00 Intake Total 360 ml 240 ml Output Total 775 ml Balance 360 ml -535 ml Intake Oral 360 ml 240 ml Output Urine Total 775 ml # Voids 2 2 Laboratory Tests 02/28/18 06:05: White Blood Count 7.8, Red Blood Count 4.89, Hemoglobin 14.5, Hematocrit 41.2L, Mean Corpuscular Volume 84, Mean Corpuscular Hemoglobin 29.5, Mean Corpuscular Hemoglobin Concent 35.1, Red Cell Distribution Width 11.1L, Platelet Count 193, Mean Platelet Volume 8.4, Neutrophils (%) (Auto) 34.5L, Lymphocytes (%) (Auto) 51.4H, Monocytes (%) (Auto) 9.5, Eosinophils (%) (Auto) 3.6H, Basophils (%) ( Auto) 1.0, Prothrombin Time 10.3, Prothromb Time International Ratio 1.0, Activated Partial Thromboplast Time 29, Sodium Level 138, Potassium Level 3.7, Chloride Level 103, Carbon Dioxide Level 26, Anion Gap 9, Blood Urea Nitrogen 16 , Creatinine 0.9, Estimat Glomerular Filtration Rate , Glucose Level 99, Calcium Level 8.7, Total Bilirubin 0.3, Aspartate Amino Transf (AST/SGOT) 21, Alanine Aminotransferase (ALT/SGPT) 27, Alkaline Phosphatase 90, Total Protein 7.3, Albumin 2.9L, Globulin 4.4, Albumin/Globulin Ratio 0.7L, Triglycerides Level 75, Cholesterol Level 182, LDL Cholesterol 135H, HDL Cholesterol 52, Cholesterol/HDL Ratio 3.5, Thyroid Stimulating Hormone (TSH) 2.357 Height (Feet): 5 Height (Inches): 11.00 Weight (Pounds): 235 General Appearance: lethargic EENT: normal ENT inspection Neck: normal alignment Cardiovascular: normal peripheral pulses, normal rate, regular rhythm Respiratory/Chest: chest wall non-tender, lungs clear, normal breath sounds Abdomen: normal bowel sounds, non tender, no organomegaly Extremities: normal inspection Edema: no edema noted Arm (L), no edema noted Arm (R), no edema noted Leg (L), no edema noted Leg (R), no edema noted Pedal (L), no edema noted Pedal (R), no edema noted Generalized Neurologic: responsive, motor weakness Skin: normal pigmentation, warm/dry Kasi Pimentel DO Feb 28, 2018 16:13
--- NOTE | 2018-02-28 16:35 | Neurology Progress Note ---
Interim History Interim History Interim History Mr. Kaba feels better. The numbness and altered sensation in his right hand has resolved completely. He denies any new neurologic symptoms. He specifically denies any weakness on one side or the other, numbness on one side or the other, problems with speech, problems with language or problems with vision. Review of Systems Neuro Review of Systems Benign. Objective Physical Exam Last Vital Signs Date Time Temp Pulse Resp B/P (MAP) Pulse Ox O2 Delivery O2 Flow Rate FiO2 02/28/18 11:55 88 02/28/18 11:13 97.0 02/28/18 10:10 132/57 02/28/18 08:05 20 Room Air 21 02/28/18 08:00 98 Laboratory Tests Test 02/28/18 06:05 White Blood Count 7.8 K/UL (4.8-10.8) Red Blood Count 4.89 M/UL (4.70-6.10) Hemoglobin 14.5 G/DL (14.2-18.0) Hematocrit 41.2 % (42.0-52.0) L Mean Corpuscular Volume 84 FL (80-99) Mean Corpuscular Hemoglobin 29.5 PG (27.0-31.0) Mean Corpuscular Hemoglobin Concent 35.1 G/DL (32.0-36.0) Red Cell Distribution Width 11.1 % (11.6-14.8) L Platelet Count 193 K/UL (150-450) Mean Platelet Volume 8.4 FL (6.5-10.1) Neutrophils (%) (Auto) 34.5 % (45.0-75.0) L Lymphocytes (%) (Auto) 51.4 % (20.0-45.0) H Monocytes (%) (Auto) 9.5 % (1.0-10.0) Eosinophils (%) (Auto) 3.6 % (0.0-3.0) H Basophils (%) (Auto) 1.0 % (0.0-2.0) Prothrombin Time 10.3 SEC (9.30-11.50) Prothromb Time International Ratio 1.0 (0.9-1.1) Activated Partial Thromboplast Time 29 SEC (23-33) Sodium Level 138 MMOL/L (136-145) Potassium Level 3.7 MMOL/L (3.5-5.1) Chloride Level 103 MMOL/L (98-107) Carbon Dioxide Level 26 MMOL/L (21-32) Anion Gap 9 mmol/L (5-15) Blood Urea Nitrogen 16 mg/dL (7-18) Creatinine 0.9 MG/DL (0.55-1.30) Estimat Glomerular Filtration Rate mL/min (>60) Glucose Level 99 MG/DL (74-106) Calcium Level 8.7 MG/DL (8.5-10.1) Total Bilirubin 0.3 MG/DL (0.2-1.0) Aspartate Amino Transf (AST/SGOT) 21 U/L (15-37) Alanine Aminotransferase (ALT/SGPT) 27 U/L (12-78) Alkaline Phosphatase 90 U/L (46-116) Total Protein 7.3 G/DL (6.4-8.2) Albumin 2.9 G/DL (3.4-5.0) L Globulin 4.4 g/dL Albumin/Globulin Ratio 0.7 (1.0-2.7) L Triglycerides Level 75 MG/DL (30-150) Cholesterol Level 182 MG/DL (< 200) LDL Cholesterol 135 mg/dL (<100) H HDL Cholesterol 52 MG/DL (40-60) Cholesterol/HDL Ratio 3.5 (3.3-4.4) Thyroid Stimulating Hormone (TSH) 2.357 uiU/mL (0.358-3.740) Neurologic Exam Objective PHYSICAL EXAMINATION: GENERAL: He is a well-developed, well-nourished, slightly obese, black gentleman, lying in bed, in no acute distress. HEAD: Normocephalic and atraumatic. EENT: Examination benign. NECK: No neck rigidity was observed. NEUROLOGIC EXAMINATION: MENTAL STATUS EXAMINATION: He was awake and alert. He was oriented to person, place, and time. He was able to recall 3/3 words immediately, after 1 minute and after 3 minutes on the second trial. He was able to remember presidents, Trump through De[employer] Senior with hints. His mathematical skills were impaired. His visuospatial function was also impaired. SPEECH: He had no dysarthria. LANGUAGE: He had no aphasia. CRANIAL NERVE EXAMINATION: II: The visual duran were intact on confrontation testing. III, IV & : He had a shifting exophoria, but both eyes moved relatively well when tested individually. V: He had normal facial sensations and the temporales, masseters, and pterygoids functioned normally. VII: He had normal facial expressions and no facial asymmetry. VIII: He was able to hear well bilaterally and had no nystagmus. IX: The palate moved symmetrically on phonation. X: He had no hoarseness of voice. XI: The sternocleidomastoids and trapezii functioned normally. XII: The tongue was in the midline without any fasciculations or atrophy. MOTOR SYSTEM: The tone was normal in all four extremities. Examination of muscle mass revealed no focal wasting. Examination of power revealed grade 5/5 power. SENSORY EXAMINATION: He had intact sensations to pinprick, light touch, and graphesthesia. COORDINATION: He performed well on [id number] and [id number] testing. REFLEXES: Trace+ and bilaterally symmetrical at the biceps, triceps, brachioradialis, and knees, 0 at both ankles. The plantar responses were flexor bilaterally. STANCE: He had a normal stance. GAIT: He tended to drag his right leg when he walked, which he attributed to pain in his right groin. Impression/Recommendations Diagnostic Impression 1. Mr Sesar Espinal is a 77-year-old, right-handed, black gentleman, who does have a past history of hypertension, diabetes mellitus, and dyslipidemia. He apparently has not been taking care of his dyslipidemia, but says that he is controlling his high blood pressure and diabetes mellitus with medicines. At ~ 10 PM on 02/26/18 he suddenly developed right upper extremity altered sensation, which continued when he woke up at 5 AM on 02/27/18. As a result of that, he came to the hospital. 2. He feels better. The numbness and altered sensation in his right hand has resolved completely. He denies any new neurologic symptoms. 3. On neurological examination at this time, he does have a shifting exophoria, globally diminished deep tendon reflexes and a limp on the right side due to right groin pain. The altered sensation involving the right upper extremity has resolved completely. 4. The MRI scan of the brain reveals a small left thalamic infarct, but no other acute pathology. 5. Laboratory data obtained thus far revealed a relatively normal CBC, a relatively normal chemistry panel except for glucose elevated to 129 and BUN elevated to 21 and an INR of 0.9. 6. The carotid duplex revealed 70% left ICA stenosis. 7. The CTA of the extracranial blood vessels revealed 70-80% stenosis of the proximal left ICA due to calcific plaque. 8. The patient's history, neurological examination, and laboratory data are most compatible with an acute left thalamic infarct causing dysesthesias involving his right upper extremity in an opera length glove distribution, which has now nor resolved completely. 9. The etiology for the infarct would be a small end artery occlusion. 10. The etiology for the small end artery occlusion would be hypertensive, diabetic, dyslipidemic, cerebrovascular disease. 11. He also has incidental severe left ICA stenosis. Recommendations 1. The patient was given an explanation of the above-mentioned findings. 2. He should be treated aggressively for his small blood vessel cerebrovascular disease. His blood pressure goal should be equal to or less than 120/80 mmHg, his diabetic goal should be a hemoglobin A1c of less than 6% and his dyslipidemic goal should be an LDL of less than 70. 3. Plavix 75 mg daily for secondary stroke prevention. 4. He was also encouraged to lose some weight over time. 5. Left Carotid Revascularization in the near future. 6. If discharged - follow up in office in 6-8 weeks. Kevon Greene M.D., M.S.P.Jeanette. KEVON GREENE Feb 28, 2018 16:35
[2018-02-28 20:00] VITALS: BP 148/75
[2018-02-28] MEDS: Atorvastatin 80mg tab ORAL SCH (21:26)
--- NOTE | 2018-02-28 22:34 | General Progress Note ---
Progress Note Progress Note All noted Severe left carotid stenosis on duplex and CT angio Left hemispheric small cva with resolving symptoms HTN DM Former smoker Rec Daily Ecotrin, Plavix & Statin Cards eval and stress test PT OT Ok for d/c planning once medically cleared Will schedule the patient for left carotid endarterectomy as outpatient in 2-3 wks once cleared d/w pt at length d/w pmd Krystian Nava MD Feb 28, 2018 22:34
[2018-03-01] VITALS: BP 153/57
[2018-03-01 04:00] VITALS: BP 145/61
--- NOTE | 2018-03-01 05:16 | General Progress Note ---
Assessment/Plan Assessment/Plan Left leg dvt --> initially was on lovenox --> dc lovenox and start apixaban 10mg po bid x 7days, then 5mg po bid --> 3mo of anticoag indicated Left hemispheric stroke, left thalamus --> appreciate neuro recs Left 70-80% high grade stenosis seen by vascular --> outpatient clearance for CEA Former smoker HTN Subjective Date patient seen: Feb 28, 2018 Constitutional: Denies: no symptoms, chills, diaphoresis, fever, malaise, weakness, other HEENT: Denies: no symptoms, eye pain, blurred vision, tearing, double vision, ear pain, ear discharge, nose pain, nose congestion, throat pain, throat swelling, mouth pain, mouth swelling, other Cardiovascular: Denies: no symptoms, chest pain, edema, irregular heart rate, lightheadedness, palpitations, syncope, other Respiratory: Denies: no symptoms, cough, orthopnea, shortness of breath, SOB with excertion, SOB at rest, sputum, stridor, wheezing, other Gastrointestinal/Abdominal: Denies: no symptoms, abdomen distended, abdominal pain, black stools, tarry stools, blood in stool, constipated, diarrhea, difficulty swallowing, nausea, poor appetite, poor fluid intake, rectal bleeding , vomiting, other Genitourinary: Denies: no symptoms, burning, discharge, frequency, flank pain, hematuria, incontinence, pain, urgency, other Neurologic/Psychiatric: Denies: no symptoms, anxiety, depressed, emotional problems, headache, numbness, paresthesia, pre-existing deficit, seizure, tingling, tremors, weakness, other Endocrine: Denies: no symptoms, excessive sweating, flushing, intolerance to cold, intolerance to heat, increased hunger, increased thirst, increased urine, unexplained weight gain, unexplained weight loss, other Hematologic/Lymphatic: Denies: no symptoms, anemia, easy bleeding, easy bruising, other Allergies: Coded Allergies: NO KNOWN DRUG ALLERGIES (Unverified Allergy, Unknown, 01/24/15) Subjective no f/c Objective Last 24 Hour Vital Signs Date Time Temp Pulse Resp B/P (MAP) Pulse Ox O2 Delivery O2 Flow Rate FiO2 03/01/18 04:00 51 03/01/18 00:00 48 02/28/18 20:00 51 02/28/18 19:08 70 20 Room Air 21 02/28/18 15:25 60 02/28/18 11:55 88 02/28/18 11:13 97.0 02/28/18 10:10 67 132/57 02/28/18 08:11 46 02/28/18 08:05 67 20 Room Air 21 02/28/18 08:00 97.0 46 19 132/57 98 Room Air 97.0 Intake and Output 02/28/18 03/01/18 19:00 07:00 Intake Total 700 ml Output Total 600 ml Balance 100 ml Intake Oral 700 ml Output Urine Total 600 ml Laboratory Tests 02/28/18 06:05: White Blood Count 7.8, Red Blood Count 4.89, Hemoglobin 14.5, Hematocrit 41.2L, Mean Corpuscular Volume 84, Mean Corpuscular Hemoglobin 29.5, Mean Corpuscular Hemoglobin Concent 35.1, Red Cell Distribution Width 11.1L, Platelet Count 193, Mean Platelet Volume 8.4, Neutrophils (%) (Auto) 34.5L, Lymphocytes (%) (Auto) 51.4H, Monocytes (%) (Auto) 9.5, Eosinophils (%) (Auto) 3.6H, Basophils (%) ( Auto) 1.0, Prothrombin Time 10.3, Prothromb Time International Ratio 1.0, Activated Partial Thromboplast Time 29, Sodium Level 138, Potassium Level 3.7, Chloride Level 103, Carbon Dioxide Level 26, Anion Gap 9, Blood Urea Nitrogen 16 , Creatinine 0.9, Estimat Glomerular Filtration Rate , Glucose Level 99, Calcium Level 8.7, Total Bilirubin 0.3, Aspartate Amino Transf (AST/SGOT) 21, Alanine Aminotransferase (ALT/SGPT) 27, Alkaline Phosphatase 90, Total Protein 7.3, Albumin 2.9L, Globulin 4.4, Albumin/Globulin Ratio 0.7L, Triglycerides Level 75, Cholesterol Level 182, LDL Cholesterol 135H, HDL Cholesterol 52, Cholesterol/HDL Ratio 3.5, Thyroid Stimulating Hormone (TSH) 2.357 Height (Feet): 5 Height (Inches): 11.00 Weight (Pounds): 235 General Appearance: alert EENT: TMs normal Neck: normal inspection Cardiovascular: regular rhythm Respiratory/Chest: chest wall non-tender Abdomen: soft Extremities: normal range of motion Edema: 1+ Leg (L), 1+ Leg (R) Edema: mild edema Neurologic: alert Skin: warm/dry Ronnie Michel MD Mar 01, 2018 05:16
[2018-03-01] MEDS: Norco 5mg/325mg tab ORAL PRN ×3 (06:18→20:25)
[2018-03-01] MEDS: NovoLOG Insulin Flexpen SUBQ SCH ×4 (06:30→21:00)
--- NOTE | 2018-03-01 07:00 | Pulmonology Progress Note ---
Assessment/Plan Assessment/Plan ASSESSMENT Acute lacunar infarct left thalamus Severe left carotid stenosis Diabetes mellitus Hypertension Hyperlipidemia hx of smoking PLAN OF CARE Telemetry floor CT head negative MRI of the brain with evidence of acute left thalamic infarct Neuro follows carotid duplex with severe left sided 70% stenosis internal carotid artery vascular surgeon follows CTA confirmed severe Left sided carotid stenosis CTA head and necl results: 70-80% high-grade stenosis estimated within the proximal left ICA due to calcific plaque. 60-70% moderate to high-grade stenosis suspected within the mid left common carotid artery. 40% mild stenosis estimated at the origin of the right ICA. Widely patent vertebral arteries. ASA, Plavix, high dose statin Lipid panel was elevated LDL 135, cardio follows stress test need to be done prior to surgery ( carotid endarterectomy) blood pressure management with current regimen, optimize for control as needed counseled to continue abstinence from smoking O2, HHN prn blood sugar management with sliding scale of insulin, hemoglobin A1c 7.2 TSH within normal limits DVT prophylaxis PT/OT case discussed and evaluated by supervising physician Subjective Allergies: Coded Allergies: NO KNOWN DRUG ALLERGIES (Unverified Allergy, Unknown, 01/24/15) Subjective awake, alert, no new weakness CTA head and neck confirmed high degree of carotid stenosis left side Objective Last 24 Hour Vital Signs Date Time Temp Pulse Resp B/P (MAP) Pulse Ox O2 Delivery O2 Flow Rate FiO2 03/01/18 04:00 97.2 54 17 145/61 98 Room Air 97.2 03/01/18 04:00 51 03/01/18 00:00 97.6 52 20 153/57 96 Room Air 97.6 03/01/18 00:00 48 02/28/18 20:00 98.1 56 18 148/75 97 Room Air 98.1 02/28/18 20:00 51 02/28/18 19:08 70 20 Room Air 21 02/28/18 15:25 60 02/28/18 11:55 88 02/28/18 11:13 97.0 02/28/18 10:10 67 132/57 02/28/18 08:11 46 02/28/18 08:05 67 20 Room Air 21 02/28/18 08:00 97.0 46 19 132/57 98 Room Air 97.0 Intake and Output 02/28/18 03/01/18 19:00 07:00 Intake Total 700 ml Output Total 600 ml 400 ml Balance 100 ml -400 ml Intake Oral 700 ml Output Urine Total 600 ml 400 ml General Appearance: no acute distress HEENT: normocephalic, atraumatic, anicteric, mucous membranes moist Respiratory/Chest: lungs clear, no respiratory distress Cardiovascular: normal peripheral pulses, normal rate - SR with occasional PVC , soemtimes SB , no gallop/murmur, no JVD Abdomen: normal bowel sounds, soft, non tender Extremities: no edema, pedal pulses normal Neurologic/Psychiatric: no motor/sensory deficits - motor strength 5/5, sensory intact , alert, oriented x 3, responsive Current Medications Medications (Trade) Dose Ordered Sig/Raji Route PRN Reason Start Time Stop Time Status Last Admin Dose Admin Acetaminophen (Tylenol) 650 mg Q4H PRN ORAL fever 02/27/18 10:45 03/29/18 10:44 Acetaminophen/ Hydrocodone Bitart (Sophia 5/325) 1 tab Q4H PRN ORAL Severe Pain (Pain Scale 7-10) 02/27/18 12:15 03/06/18 12:14 03/01/18 06:18 Albuterol/ Ipratropium (Albuterol/ Ipratropium) 3 ml Q4H PRN HHN Shortness of Breath 02/27/18 10:45 03/04/18 10:44 Amlodipine Besylate (Norvasc) 10 mg DAILY ORAL 02/28/18 09:00 03/30/18 08:59 02/28/18 10:10 Apixaban (Eliquis) 10 mg BID ORAL 03/01/18 09:00 03/31/18 08:59 Aspirin (ASA) 81 mg DAILY ORAL 03/01/18 09:00 03/31/18 08:59 Atorvastatin Calcium (Lipitor) 80 mg BEDTIME ORAL 02/28/18 21:00 03/30/18 20:59 02/28/18 21:26 Clonidine HCl (Catapres Tab) 0.1 mg Q4H PRN ORAL For High Blood Pressure 02/27/18 10:45 03/29/18 10:44 Clopidogrel Bisulfate (Plavix) 75 mg Q24H ORAL 02/27/18 20:00 03/29/18 19:59 02/28/18 19:37 Dextrose (Dextrose 50%) 25 ml STAT PRN IV Hypoglycemia 02/27/18 10:45 03/29/18 10:44 Dextrose (Dextrose 50%) 50 ml STAT PRN IV Hypoglycemia 02/27/18 10:45 03/29/18 10:44 Insulin Aspart (NovoLOG) BEFORE MEALS AND HS SUBQ 02/27/18 11:30 03/29/18 11:29 02/28/18 17:10 Iopamidol (Isovue-370 150ml) 150 ml NOW PRN INJ Radiology Procedure 02/27/18 20:00 03/01/18 19:56 Iopamidol (Isovue-370 150ml) 150 ml NOW PRN INJ Radiology Procedure 02/27/18 20:00 03/01/18 19:56 Nitroglycerin (Ntg) 0.4 mg Q5M X 3 DOSES PRN SL Prn Chest Pain 02/27/18 11:00 03/29/18 10:59 Ondansetron HCl (Zofran) 4 mg Q6H PRN IVP Nausea & Vomiting 02/27/18 11:00 03/29/18 10:59 Polyethylene Glycol (Miralax) 17 gm HSPRN PRN ORAL Constipation 02/27/18 21:00 03/29/18 20:59 Promethazine HCl/ Codeine (Phenergan with Codeine) 5 ml Q4H PRN ORAL For Cough 02/27/18 11:00 03/29/18 10:59 Temazepam (Restoril) 15 mg HSPRN PRN ORAL Insomnia 02/27/18 21:00 03/06/18 20:59 02/28/18 21:26 Narcisa Horvath [employer] Mar 01, 2018 07:00
--- NOTE | 2018-03-01 07:45 | Consultation ---
DATE OF CONSULTATION: 02/27/2018 NOTE: POOR AUDIO HEMATOLOGY/ONCOLOGY CONSULTATION CONSULTING PHYSICIAN: Ronnie Michel M.D. REFERRING PHYSICIAN: Kasi Pimentel D.O. REASON FOR CONSULTATION: Evaluation of DVT of extremities. IDENTIFYING DATA: Dear Dr. Kasi Pimentel, The patient is a pleasant 77-year-old male with past medical history significant for hypertension, diabetes mellitus, at this time for the past several days has had right groin pain distribution and continued in the morning presents to the ER. MRI showed acute stroke DVT of the left lower extremity. Hematology Service was consulted for further evaluation and treatment. PAST MEDICAL HISTORY: Diabetes mellitus, hypertension, CVA, . PAST SURGICAL HISTORY: Abdominal hernia repair. MEDICATIONS: MiraLAX, heparin, , Zofran, nitroglycerin, Tylenol, and aspirin. ALLERGIES: No known drug allergies. SOCIAL HISTORY: No alcohol, tobacco, or illicit drug use. FAMILY HISTORY: Noncontributory. REVIEW OF SYSTEMS: CONSTITUTIONAL: No fevers, chills, or night sweats. SKIN: No rashes, bumps, or itching. HEENT: No headache, hearing or vision changes. BREASTS: No lumps, pain, or discharge. PULMONARY: No cough, sputum, or shortness of breath. GASTROINTESTINAL: No nausea, vomiting, or diarrhea. GENITOURINARY: No dysuria, frequency, or urgency. MUSCULOSKELETAL: No joint swelling, muscle pain, or trauma. PHYSICAL EXAMINATION: VITAL SIGNS: Reviewed. GENERAL: No distress. LUNGS: Decreased breath sounds. CARDIOVASCULAR: Regular rate. No S3 or S4. ABDOMEN: Soft, nontender, and nondistended. EXTREMITIES: No cyanosis, swelling, or edema noted. LABORATORY AND DIAGNOSTIC DATA: WBC 7.8, hemoglobin 14.5, hematocrit 41, and platelets 193,000. INR of 1. BUN of 16 and creatinine . A1c is 7.2. Total protein 7.3. Triglycerides is 75, cholesterol , LDL 135. Serology, nonreactive RPR. Imaging reviewed. CT scan of the head and neck shows stenosis, proximal left ICA duplex scan shows DVT of the left lower extremity in the anterior vein. ASSESSMENT AND RECOMMENDATION: 1. Upper extremity deep venous thrombosis and left lower extremity deep venous thrombosis. The patient is started on Lovenox. Consider use of aspirin as well as Coumadin in the long-term setting. Can consider apixaban as well. 2. Anemia due to underlying chronic disease, currently stable. 3. A 70% to 80% high-grade stenosis in the left ICA. 4. History of gouty arthritis. 5. Diabetes mellitus. 6. Stroke. 7. Dyslipidemia. I appreciate the consultation. Ronnie Michel M.D. DR: BRAYDEN JOB#: [id number] CC:
[2018-03-01 07:50] LABS: ANION GAP 7 mmol/L (5-15); BLOOD UREA NITROGEN 14 mg/dL (7-18); CALCIUM 9.3 MG/DL (8.5-10.1); CARBON DIOXIDE 28 MMOL/L (21-32); CHLORIDE 103 MMOL/L (98-107); CREATININE 0.9 MG/DL (0.55-1.30); SODIUM 138 MMOL/L (136-145)
[2018-03-01 08:00] VITALS: BP 142/70
[2018-03-01 08:00] LABS: EOSINOPHILS % (AUTO) 3.7 % (0.0-3.0); HEMATOCRIT 43.2 % (42.0-52.0); HEMOGLOBIN 15.3 G/DL (14.2-18.0); LYMPHOCYTES % (AUTO) 51.7 % (20.0-45.0); MEAN CORPUSCULAR VOLUME 84 FL (80-99); MONOCYTES % (AUTO) 8.5 % (1.0-10.0); NEUTROPHILS % (AUTO) 35.2 % (45.0-75.0); PLATELET COUNT 220 K/UL (150-450); RED BLOOD COUNT 5.13 M/UL (4.70-6.10); RED CELL DISTRIBUTION WIDTH 11.1 % (11.6-14.8); WHITE BLOOD COUNT 8.3 K/UL (4.8-10.8)
[2018-03-01] MEDS ORDERED: Aspirin Baby 81mg ORAL SCH (09:00)
[2018-03-01] MEDS: Eliquis 2.5mg tablet ORAL SCH ×2 (09:27→17:14)
[2018-03-01 09:28] VITALS: BP 142/70
--- NOTE | 2018-03-01 09:37 | General Progress Note ---
Assessment/Plan Problem List: (1) HTN (hypertension) ICD Codes: I10 - Essential (primary) hypertension SNOMED: 22182572 (2) DVT (deep vein thrombosis) in ICD Codes: O22.30 - Deep phlebothrombosis in , unspecified trimester; I82.409 - Acute embolism and thrombosis of unspecified deep veins of unspecified lower extremity SNOMED: 76970378, 257551811 (3) Carotid stenosis ICD Codes: I65.29 - Occlusion and stenosis of unspecified carotid artery SNOMED: 25940641 (4) Diabetes ICD Codes: E11.9 - Type 2 diabetes mellitus without complications SNOMED: 42321017 (5) History of acute gouty arthritis ICD Codes: Z87.39 - Personal history of other diseases of the musculoskeletal system and connective tissue SNOMED: 793188834 (6) CVA (cerebral vascular accident) ICD Codes: I63.9 - Cerebral infarction, unspecified SNOMED: 258411288 Status: stable, progressing Assessment/Plan pt diet anticoag prn cbc bmp am cardio clearance for vasc procedure Subjective Allergies: Coded Allergies: NO KNOWN DRUG ALLERGIES (Unverified Allergy, Unknown, 01/24/15) All Systems: reviewed and negative except above Subjective sleepy calm Objective Last 24 Hour Vital Signs Date Time Temp Pulse Resp B/P (MAP) Pulse Ox O2 Delivery O2 Flow Rate FiO2 03/01/18 09:28 62 142/70 03/01/18 08:35 69 22 Room Air 21 03/01/18 07:17 97.2 03/01/18 04:00 97.2 54 17 145/61 98 Room Air 97.2 03/01/18 04:00 51 03/01/18 00:00 97.6 52 20 153/57 96 Room Air 97.6 03/01/18 00:00 48 02/28/18 20:00 98.1 56 18 148/75 97 Room Air 98.1 02/28/18 20:00 51 02/28/18 19:08 70 20 Room Air 21 02/28/18 15:25 60 02/28/18 11:55 88 02/28/18 10:10 67 132/57 Intake and Output 02/28/18 03/01/18 19:00 07:00 Intake Total 700 ml Output Total 600 ml 400 ml Balance 100 ml -400 ml Intake Oral 700 ml Output Urine Total 600 ml 400 ml Laboratory Tests 03/01/18 06:30: White Blood Count 8.3, Red Blood Count 5.13, Hemoglobin 15.3, Hematocrit 43.2, Mean Corpuscular Volume 84, Mean Corpuscular Hemoglobin 29.8, Mean Corpuscular Hemoglobin Concent 35.4, Red Cell Distribution Width 11.1L, Platelet Count 220, Mean Platelet Volume 8.3, Neutrophils (%) (Auto) 35.2L, Lymphocytes (%) (Auto) 51.7H, Monocytes (%) (Auto) 8.5, Eosinophils (%) (Auto) 3.7H, Basophils (%) ( Auto) 1.0 03/01/18 06:35: Sodium Level 138, Potassium Level 4.0, Chloride Level 103, Carbon Dioxide Level 28, Anion Gap 7, Blood Urea Nitrogen 14, Creatinine 0.9, Estimat Glomerular Filtration Rate , Glucose Level 107H, Calcium Level 9.3 Height (Feet): 5 Height (Inches): 11.00 Weight (Pounds): 235 General Appearance: lethargic EENT: normal ENT inspection Neck: normal alignment Cardiovascular: normal peripheral pulses, normal rate, regular rhythm Respiratory/Chest: chest wall non-tender, lungs clear, normal breath sounds Abdomen: normal bowel sounds, non tender, soft Extremities: normal inspection Edema: no edema noted Arm (L), no edema noted Arm (R), no edema noted Leg (L), no edema noted Leg (R), no edema noted Pedal (L), no edema noted Pedal (R), no edema noted Generalized Neurologic: motor weakness Skin: normal pigmentation, warm/dry Kasi Pimentel DO Mar 01, 2018 09:37
--- NOTE | 2018-03-01 10:11 | General Progress Note ---
Assessment/Plan Status: stable Assessment/Plan Left leg dvt --> initially was on lovenox --> dc lovenox and start apixaban 10mg po bid x 7days, then 5mg po bid --> 3mo of anticoag indicated Left hemispheric stroke, left thalamus --> appreciate neuro recs Left 70-80% high grade stenosis seen by vascular --> outpatient clearance for CEA Former smoker HTN Subjective Date patient seen: Mar 01, 2018 Allergies: Coded Allergies: NO KNOWN DRUG ALLERGIES (Unverified Allergy, Unknown, 01/24/15) All Systems: reviewed and negative except above Subjective No overnight events. Pt denies, sob, chills, fever. Objective Last 24 Hour Vital Signs Date Time Temp Pulse Resp B/P (MAP) Pulse Ox O2 Delivery O2 Flow Rate FiO2 03/01/18 09:28 62 142/70 03/01/18 08:35 69 22 Room Air 21 03/01/18 08:00 97.2 62 18 142/70 98 Room Air 21 97.2 03/01/18 07:17 97.2 03/01/18 04:00 97.2 54 17 145/61 98 Room Air 97.2 03/01/18 04:00 51 03/01/18 00:00 97.6 52 20 153/57 96 Room Air 97.6 03/01/18 00:00 48 02/28/18 20:00 98.1 56 18 148/75 97 Room Air 98.1 02/28/18 20:00 51 02/28/18 19:08 70 20 Room Air 21 02/28/18 15:25 60 02/28/18 11:55 88 02/28/18 10:10 67 132/57 Intake and Output 02/28/18 03/01/18 19:00 07:00 Intake Total 700 ml Output Total 600 ml 400 ml Balance 100 ml -400 ml Intake Oral 700 ml Output Urine Total 600 ml 400 ml Laboratory Tests 03/01/18 06:30: White Blood Count 8.3, Red Blood Count 5.13, Hemoglobin 15.3, Hematocrit 43.2, Mean Corpuscular Volume 84, Mean Corpuscular Hemoglobin 29.8, Mean Corpuscular Hemoglobin Concent 35.4, Red Cell Distribution Width 11.1L, Platelet Count 220, Mean Platelet Volume 8.3, Neutrophils (%) (Auto) 35.2L, Lymphocytes (%) (Auto) 51.7H, Monocytes (%) (Auto) 8.5, Eosinophils (%) (Auto) 3.7H, Basophils (%) ( Auto) 1.0 03/01/18 06:35: Sodium Level 138, Potassium Level 4.0, Chloride Level 103, Carbon Dioxide Level 28, Anion Gap 7, Blood Urea Nitrogen 14, Creatinine 0.9, Estimat Glomerular Filtration Rate , Glucose Level 107H, Calcium Level 9.3 Height (Feet): 5 Height (Inches): 11.00 Weight (Pounds): 235 General Appearance: no apparent distress EENT: PERRL/EOMI Neck: supple Cardiovascular: normal peripheral pulses Respiratory/Chest: chest wall non-tender Ronnie Michel MD Mar 01, 2018 10:11
--- NOTE | 2018-03-01 11:53 | Neurology Progress Note ---
Interim History Interim History Interim History Mr. Kaba feels very well. The numbness and altered sensation in his right hand has resolved completely. His right hand is functioning normally. He denies any new neurologic symptoms. He specifically denies any weakness on one side or the other, numbness on one side or the other, problems with speech, problems with language or problems with vision. Review of Systems Neuro Review of Systems Benign. Objective Physical Exam Last Vital Signs Date Time Temp Pulse Resp B/P (MAP) Pulse Ox O2 Delivery O2 Flow Rate FiO2 03/01/18 09:28 62 142/70 03/01/18 08:35 22 Room Air 21 03/01/18 08:00 97.2 98 97.2 Laboratory Tests Test 03/01/18 06:30 03/01/18 06:35 White Blood Count 8.3 K/UL (4.8-10.8) Red Blood Count 5.13 M/UL (4.70-6.10) Hemoglobin 15.3 G/DL (14.2-18.0) Hematocrit 43.2 % (42.0-52.0) Mean Corpuscular Volume 84 FL (80-99) Mean Corpuscular Hemoglobin 29.8 PG (27.0-31.0) Mean Corpuscular Hemoglobin Concent 35.4 G/DL (32.0-36.0) Red Cell Distribution Width 11.1 % (11.6-14.8) L Platelet Count 220 K/UL (150-450) Mean Platelet Volume 8.3 FL (6.5-10.1) Neutrophils (%) (Auto) 35.2 % (45.0-75.0) L Lymphocytes (%) (Auto) 51.7 % (20.0-45.0) H Monocytes (%) (Auto) 8.5 % (1.0-10.0) Eosinophils (%) (Auto) 3.7 % (0.0-3.0) H Basophils (%) (Auto) 1.0 % (0.0-2.0) Sodium Level 138 MMOL/L (136-145) Potassium Level 4.0 MMOL/L (3.5-5.1) Chloride Level 103 MMOL/L (98-107) Carbon Dioxide Level 28 MMOL/L (21-32) Anion Gap 7 mmol/L (5-15) Blood Urea Nitrogen 14 mg/dL (7-18) Creatinine 0.9 MG/DL (0.55-1.30) Estimat Glomerular Filtration Rate mL/min (>60) Glucose Level 107 MG/DL (74-106) H Calcium Level 9.3 MG/DL (8.5-10.1) Neurologic Exam Objective PHYSICAL EXAMINATION: GENERAL: He is a well-developed, well-nourished, slightly obese, black gentleman, lying in bed, in no acute distress. HEAD: Normocephalic and atraumatic. EENT: Examination benign. NECK: No neck rigidity was observed. NEUROLOGIC EXAMINATION: MENTAL STATUS EXAMINATION: He was awake and alert. He was oriented to person, place, and time. He was able to recall 3/3 words immediately, after 1 minute and after 3 minutes on the second trial. He was able to remember presidents, Trump through Dewey Senior with hints. His mathematical skills were impaired. His visuospatial function was also impaired. SPEECH: He had no dysarthria. LANGUAGE: He had no aphasia. CRANIAL NERVE EXAMINATION: II: The visual duran were intact on confrontation testing. III, IV & : He had a shifting exophoria, but both eyes moved relatively well when tested individually. V: He had normal facial sensations and the temporales, masseters, and pterygoids functioned normally. VII: He had normal facial expressions and no facial asymmetry. VIII: He was able to hear well bilaterally and had no nystagmus. IX: The palate moved symmetrically on phonation. X: He had no hoarseness of voice. XI: The sternocleidomastoids and trapezii functioned normally. XII: The tongue was in the midline without any fasciculations or atrophy. MOTOR SYSTEM: The tone was normal in all four extremities. Examination of muscle mass revealed no focal wasting. Examination of power revealed grade 5/5 power. SENSORY EXAMINATION: He had intact sensations to pinprick, light touch, and graphesthesia. COORDINATION: He performed well on [id number] and [id number]-[id number] testing. REFLEXES: Trace+ and bilaterally symmetrical at the biceps, triceps, brachioradialis, and knees, 0 at both ankles. The plantar responses were flexor bilaterally. STANCE: He had a normal stance. GAIT: He tended to drag his right leg when he walked, which he attributed to pain in his right groin. Impression/Recommendations Diagnostic Impression 1. Mr Sesar Espinal is a 77-year-old, right-handed, black gentleman, who does have a past history of hypertension, diabetes mellitus, and dyslipidemia. He apparently has not been taking care of his dyslipidemia, but says that he is controlling his high blood pressure and diabetes mellitus with medicines. At ~ 10 PM on 02/26/18 he suddenly developed right upper extremity altered sensation, which continued when he woke up at 5 AM on 02/27/18. As a result of that, he came to the hospital. 2. He feels very well. The numbness and altered sensation in his right hand has resolved completely. The right hand is functioning normally. He denies any new neurologic symptoms. 3. On neurological examination at this time, he does have a shifting exophoria, globally diminished deep tendon reflexes and a limp on the right side due to right groin pain. The altered sensation involving the right upper extremity has resolved completely. 4. The MRI scan of the brain reveals a small left thalamic infarct, but no other acute pathology. 5. Laboratory data obtained thus far revealed a relatively normal CBC, a relatively normal chemistry panel except for glucose elevated to 129 and BUN elevated to 21 and an INR of 0.9. 6. The carotid duplex revealed 70% left ICA stenosis. 7. The CTA of the extracranial blood vessels revealed 70-80% stenosis of the proximal left ICA due to calcific plaque. 8. The patient's history, neurological examination, and laboratory data are most compatible with an acute left thalamic infarct causing dysesthesias involving his right upper extremity in an opera length glove distribution, which has now nor resolved completely. 9. The etiology for the infarct would be a small end artery occlusion. 10. The etiology for the small end artery occlusion would be hypertensive, diabetic, dyslipidemic, cerebrovascular disease. 11. He also has incidental severe left ICA stenosis. Recommendations 1. The patient was given an explanation of the above-mentioned findings. 2. He should be treated aggressively for his small blood vessel cerebrovascular disease. His blood pressure goal should be equal to or less than 120/80 mmHg, his diabetic goal should be a hemoglobin A1c of less than 6% and his dyslipidemic goal should be an LDL of less than 70. 3. Plavix 75 mg daily for secondary stroke prevention. 4. He was also encouraged to lose some weight over time. 5. Left Carotid Revascularization in the near future. 6. If discharged - follow up in office in 6-8 weeks. Kevon Greene M.D., MNicholas. KEVON GREENE Mar 01, 2018 11:53
--- NOTE | 2018-03-01 12:04 | Cardiology Progress Note ---
Assessment/Plan Assessment/Plan CVA HTN DM Carotid US 1) Aspirin for CAD 2) Plavix for CVA 3) High dose statin 4) BP control 5) Patient will need stress test for cardiac assessment of risk factors prior to surgery 6) Ok to discharge and do stress test as outpatient otherwise can do Saturday Subjective Cardiovascular: Reports: no symptoms Respiratory: Reports: no symptoms Gastrointestinal/Abdominal: Reports: no symptoms Genitourinary: Reports: no symptoms Subjective No acute events, no complaints at this time Objective Last 24 Hour Vital Signs Date Time Temp Pulse Resp B/P (MAP) Pulse Ox O2 Delivery O2 Flow Rate FiO2 03/01/18 09:28 62 142/70 03/01/18 08:35 69 22 Room Air 21 03/01/18 08:00 97.2 62 18 142/70 98 Room Air 21 97.2 03/01/18 08:00 74 03/01/18 07:17 97.2 03/01/18 04:00 97.2 54 17 145/61 98 Room Air 97.2 03/01/18 04:00 51 03/01/18 00:00 97.6 52 20 153/57 96 Room Air 97.6 03/01/18 00:00 48 02/28/18 20:00 98.1 56 18 148/75 97 Room Air 98.1 02/28/18 20:00 51 02/28/18 19:08 70 20 Room Air 21 02/28/18 15:25 60 General Appearance: no apparent distress EENT: PERRL/EOMI Neck: non-tender Rhythm: NSR Cardiovascular: normal peripheral pulses Respiratory/Chest: chest wall non-tender Abdomen: normal bowel sounds Extremities: normal range of motion Neurologic: behavioral health care manager II-XII grossly normal Intake and Output 02/28/18 03/01/18 19:00 07:00 Intake Total 700 ml Output Total 600 ml 400 ml Balance 100 ml -400 ml Intake Oral 700 ml Output Urine Total 600 ml 400 ml Laboratory Tests Test 03/01/18 06:30 03/01/18 06:35 White Blood Count 8.3 K/UL (4.8-10.8) Red Blood Count 5.13 M/UL (4.70-6.10) Hemoglobin 15.3 G/DL (14.2-18.0) Hematocrit 43.2 % (42.0-52.0) Mean Corpuscular Volume 84 FL (80-99) Mean Corpuscular Hemoglobin 29.8 PG (27.0-31.0) Mean Corpuscular Hemoglobin Concent 35.4 G/DL (32.0-36.0) Red Cell Distribution Width 11.1 % (11.6-14.8) L Platelet Count 220 K/UL (150-450) Mean Platelet Volume 8.3 FL (6.5-10.1) Neutrophils (%) (Auto) 35.2 % (45.0-75.0) L Lymphocytes (%) (Auto) 51.7 % (20.0-45.0) H Monocytes (%) (Auto) 8.5 % (1.0-10.0) Eosinophils (%) (Auto) 3.7 % (0.0-3.0) H Basophils (%) (Auto) 1.0 % (0.0-2.0) Sodium Level 138 MMOL/L (136-145) Potassium Level 4.0 MMOL/L (3.5-5.1) Chloride Level 103 MMOL/L (98-107) Carbon Dioxide Level 28 MMOL/L (21-32) Anion Gap 7 mmol/L (5-15) Blood Urea Nitrogen 14 mg/dL (7-18) Creatinine 0.9 MG/DL (0.55-1.30) Estimat Glomerular Filtration Rate mL/min (>60) Glucose Level 107 MG/DL (74-106) H Calcium Level 9.3 MG/DL (8.5-10.1) Matthew Serrano M.D. Mar 01, 2018 12:04
[2018-03-01] MEDS: Atorvastatin 80mg tab ORAL SCH (20:24)
--- NOTE | 2018-03-02 13:19 | Discharge Summary ---
Discharge Summary Discharge Summary _ DATE OF ADMISSION: 02/27/2018 DATE OF DISCHARGE: 03/01/2018 REASON FOR ADMISSION: 77 years old male with past medical history of hypertension and diabetes , presented to emergency department with increased right hand numbness. Patient reported that symptoms started about 1/2 day ago. Patient denied recent trauma or injury. He denied any chest discomfort or shortness of breath. He denied severe headache or neck pain. Vital signs in emergency department were stable. CT of the head revealed chronic age-related changes but was negative for acute intracranial bleeding or mass effect. Subsequently MRI of the brain was done, which was positive for small acute lacunar infarct in the left hollowness, but did not show acute intracranial bleeding or mass effect. Age- related volume loss along with multiply old bilateral basal ganglia and bilateral rothman radiata lacunar infarcts were noted. Laboratory workup revealed stable hemoglobin and hematocrit, no leukocytosis , ESR of 40. Troponin negative. Glucose 129. Patient admitted with diagnosis of acute CVA, hypertension , diabetes CONSULTANTS: tree surgeon Dr. Serrano neurologist Dr. Cruz pulmonary Dr. Dr. Pak telecommunications analyst/oncologist Dr. Michel Vascular surgery [facility] COURSE: Patient admitted to telemetry floor. Neurologist closely followed. Carotid duplex revealed severe left sided 70% stenosis of internal carotid artery. CTA of the head and neck confirmed severe left-sided carotid stenosis . Vascular surgeon closely followed. Patient was placed on antiplatelet therapy with aspirin , Plavix for secondary CVA prophylaxis and high dose of statin. Lipid panel revealed elevated LDL of 135. Operations Officer Trust Department closely followed. Echocardiogram revealed preserved ejection fraction of 60-65%. Blood pressure was managed with a current antihypertensive regimen and remained stable. Patient will need carotid endarterectomy when medically stable. Patient will require stress test test for cardiac assessment of risk factors prior to surgery. Operations Officer Trust Department cleared patient for discharge with outpatient stress test to be done as an outpatient. Patient was counseled to continue abstinence from smoking. Supplemental oxygen and pulmonary toilet provided as needed. Blood sugar was managed with sliding scale insulin. Hemoglobin A1c -7.2, nearly at goal. TSH was within normal limits. DVT prophylaxis provided. Patient was working with physical and occupational therapist.r Right hand numbness resolved. Patient was stable for discharge home with home health services. FINAL DIAGNOSES: Acute lacunar infarct left thalamus Severe left carotid stenosis Diabetes mellitus Hypertension Hyperlipidemia History of smoking DISCHARGE MEDICATIONS: List of discharge medication provided to patient was prescription. DISCHARGE INSTRUCTIONS: Patient was discharged home with home health services. Follow-up with a tree surgeon for outpatient stress test. Follow-up with a neurologist in 6-8 weeks. Follow-up with the vascular surgeon in 2-3 weeks after cardiology clearance. Narcisa Horvath NP Mar 02, 2018 13:19
--- NOTE | 2018-03-02 15:00 | Consultation ---
DATE OF CONSULTATION: 02/28/2018 VASCULAR SURGERY CONSULTATION CONSULTING PHYSICIAN: Krystian Nava M.D. REFERRING PHYSICIAN: Kasi Pimentel D.O. REASON FOR CONSULTATION: Severe left carotid stenosis and TIA. HISTORY OF PRESENT ILLNESS: This is a 77-year-old male, who suffers from hypertension, diabetes mellitus, former heavy smoker, who presented with right arm weakness, which has resolved. The patient underwent a brain imaging, which revealed a left hemispheric small stroke. Carotid duplex and CT angiogram of the neck revealed bilateral left worse than right carotid artery calcific stenosis of the bifurcation. Vascular Surgery is consulted for further evaluation. The patient currently has no other complaints. His symptoms have resolved. PAST MEDICAL HISTORY: As above. History of hypertension and smoking, he is a former smoker, and diabetes mellitus. MEDICATIONS: See attached MAR. ALLERGIES: No known drug allergies. SOCIAL HISTORY: No current history of smoking, drugs, or alcohol abuse. He did smoke cigarettes heavily and drugs in the past. SYSTEMS REVIEW: CARDIOVASCULAR: Denies history of chest pain or palpitation. PULMONARY: No cough or hemoptysis. GASTROINTESTINAL: No history of abdominal pain, constipation, or diarrhea. GENITOURINARY: No urinary symptoms. NEUROLOGIC: No history of strokes or seizures. PHYSICAL EXAMINATION: VITAL SIGNS: The patient is afebrile at 97, heart rate 80, blood pressure 130/70, and respirations 16. The patient has palpable radial pulses. The patient has weak bilateral carotid bruits. LUNGS: Clear to auscultation. HEART: Regular rate and rhythm. ABDOMEN: Soft and nontender. NEUROLOGIC: Grossly intact. He has palpable femoral pulses. Feet are warm and intact pedal Dopplers bilaterally. CT and carotid duplex were reviewed. IMPRESSION: 1. Bilateral left worse than right carotid artery significant stenosis on duplex and CT angiogram of the neck with left small hemispheric stroke with symptoms resolving. 2. History of hypertension, diabetes mellitus, former smoker, calcific PAD, Medical and Cardiology evaluation optimization. 3. Continue with daily Ecotrin, daily Plavix, and daily statin therapy. 4. The patient will be scheduled for left carotid revascularization as an outpatient in about two or three weeks' time once medically cleared for surgery. The above was discussed at length with the patient and all his questions were answered. Krystian Nava M.D. DR: EMELIA JOB#: [id number] CC: Krystian Nava M.D.; Fax#: [phone] Caro Archuleta M.D.; FAX#: [phone]
== END 2018-03-01 21:45 | disposition home health service (06) | DRG 65 ==
LOC: EMR 06:05 → 2E 09:11 → EDBEDREQ 09:29 → 2E 17:04
DX: I63.50 Cerebral infarction due to unspecified occlusion or stenosis of unspecified cerebral artery (principal); I82.629 Acute embolism and thrombosis of deep veins of unspecified upper extremity; I82.402 Acute embolism and thrombosis of unspecified deep veins of left lower extremity; I65.22 Occlusion and stenosis of left carotid artery; I10 Essential (primary) hypertension; E11.9 Type 2 diabetes mellitus without complications; M19.90 Unspecified osteoarthritis, unspecified site; M10.9 Gout, unspecified; E78.5 Hyperlipidemia, unspecified; Z87.891 Personal history of nicotine dependence; D63.8 Anemia in other chronic diseases classified elsewhere
CPT/HCPCS: 36415; 70450; 70496; 70498; 70551; 80048; 80053; 80061; 82962; 83036; 84443; 84484; 85025; 85610; 85651; 85730; 86592; 93005; 93306; 93880; 93970; 94664; 97803; 99285; J1815

== ENCOUNTER 2018-10-22 16:38 | Emergency (ER) | payer MEDICARE, MEDICAID, OTHER ==
[~2018-10-22] VITALS: Ht 180.3 cm; Wt 102.1 kg
[2018-10-22 16:38] VITALS: BP 108/60
[~2018-10-22 16:38] MED LIST changes: +GLIPIZIDE10 MG PO; +NORVASC10 MG ORAL; +UNOBMED
--- NOTE | 2018-10-22 16:44 | NUR ---
ED Nurse Note: Pt from home brought in by RA [id number] due to Nausea/Vomiting and Diarrhea since 0500 this morning. Pt also reports decreased appetite. Patient is AAOx4, ambulatory, follows commands, VSS. Family member at the bed side.
--- NOTE | 2018-10-22 17:08 | NUR ---
ED Nurse Note: Dr Guzman at the bed side.
--- NOTE | 2018-10-22 17:51 | NUR ---
ED Nurse Note: Blood collected and sent. Pt is unable to provide a urine specimen at this time.
--- NOTE | 2018-10-22 17:52 | Emergency Room Report ---
History of Present Illness General Chief Complaint: Nausea, Vomiting, and Diarrhea Source: EMS Present Illness HPI Patient is a 77-year-old male presented after increased abdominal discomfort. Patient reports having worsening abdominal pain to the lower abdomen. He reports having multiple episodes of vomiting and diarrhea. Patient was noted to have multiple surgeries in the past which included abdominal hernia repairs. He reports having increased watery diarrhea associated with some abdominal cramping. He denies any pain at this time. He denies any fever. He reports having some watery diarrhea and states he is recently eaten some bad food. Patient denies any bloody stools pain was crampy in nature. Allergies: Coded Allergies: NO KNOWN DRUG ALLERGIES (Unverified Allergy, Unknown, 01/24/15) Patient History Past Medical History: see triage record Reviewed Nursing Documentation: PMH: Agreed; PSxH: Agreed Nursing Documentation-PMH Past Medical History: No History, Except For Hx Hypertension: Yes Hx Diabetes: Yes Hx Cancer: No Hx Cerebrovascular Accident: Yes Review of Systems All Other Systems: negative except mentioned in HPI Physical Exam Vital Signs Date Time Temp Pulse Resp B/P (MAP) Pulse Ox O2 Delivery O2 Flow Rate FiO2 10/22/18 16:34 98.4 74 18 108/60 96 Room Air Sp02 EP Interpretation: reviewed, normal General Appearance: normal inspection, well appearing, no apparent distress, alert, GCS 15 Head: atraumatic ENT: normal ENT inspection, hearing grossly normal, normal voice Neck: normal inspection, full range of motion, supple, no bony tend Respiratory: normal inspection, lungs clear, normal breath sounds, no respiratory distress, no retraction, no wheezing Cardiovascular #1: regular rate, rhythm, no edema Gastrointestinal: normal inspection, normal bowel sounds, non tender, soft, no guarding, no hernia Genitourinary: no CVA tenderness Musculoskeletal: normal inspection, back normal, normal range of motion Neurologic: normal inspection, alert, oriented x3, responsive, speech normal Psychiatric: normal inspection, judgement/insight normal, mood/affect normal Skin: normal inspection, normal color, no rash Medical Decision Making Diagnostic Impression: Primary Impression: Gastroenteritis ER Course . Patient presented for abdominal pain. Differential diagnoses included ischemic bowel, appendicitis, perforated viscus, abdominal aortic aneurysm, inferior myocardial infarction, viral gastroenteritis. Because of complexity of patient's case laboratory testing and imaging studies were ordered. Patient reports having prior history of multiple abdominal surgeries. Patient does not appear to have any definite evidence of obstruction at this time.Patient was given IV fluids as well as IV antiemetics. Patient was able to tolerate oral fluids. Patient said he felt better and wanted to leave. Patient was advised to return if he began having persistent vomiting increased abdominal pain or other concerns.Patient was prescribed medications for symptomatic treatment. Labs Test 10/22/18 17:40 10/22/18 18:15 White Blood Count 11.9 K/UL (4.8-10.8) Red Blood Count 5.45 M/UL (4.70-6.10) Hemoglobin 15.4 G/DL (14.2-18.0) Hematocrit 47.1 % (42.0-52.0) Mean Corpuscular Volume 86 FL (80-99) Mean Corpuscular Hemoglobin 28.3 PG (27.0-31.0) Mean Corpuscular Hemoglobin Concent 32.7 G/DL (32.0-36.0) Red Cell Distribution Width 12.1 % (11.6-14.8) Platelet Count 210 K/UL (150-450) Mean Platelet Volume 7.4 FL (6.5-10.1) Neutrophils (%) (Auto) % (45.0-75.0) Lymphocytes (%) (Auto) % (20.0-45.0) Monocytes (%) (Auto) % (1.0-10.0) Eosinophils (%) (Auto) % (0.0-3.0) Basophils (%) (Auto) % (0.0-2.0) Differential Total Cells Counted 100 Neutrophils % (Manual) 83 % (45-75) Lymphocytes % (Manual) 5 % (20-45) Monocytes % (Manual) 4 % (1-10) Eosinophils % (Manual) 0 % (0-3) Basophils % (Manual) 0 % (0-2) Band Neutrophils 8 % (0-8) Platelet Estimate Adequate Platelet Morphology Normal Red Blood Cell Morphology Normal Sodium Level 142 MMOL/L (136-145) Potassium Level 4.1 MMOL/L (3.5-5.1) Chloride Level 104 MMOL/L (98-107) Carbon Dioxide Level 29 MMOL/L (21-32) Anion Gap 9 mmol/L (5-15) Blood Urea Nitrogen 17 mg/dL (7-18) Creatinine 1.1 MG/DL (0.55-1.30) Estimat Glomerular Filtration Rate mL/min (>60) Glucose Level 184 MG/DL (74-106) Calcium Level 8.9 MG/DL (8.5-10.1) Total Bilirubin 0.8 MG/DL (0.2-1.0) Aspartate Amino Transf (AST/SGOT) 21 U/L (15-37) Alanine Aminotransferase (ALT/SGPT) 26 U/L (12-78) Alkaline Phosphatase 108 U/L (46-116) Troponin I 0.009 ng/mL (0.000-0.056) Total Protein 7.7 G/DL (6.4-8.2) Albumin 3.4 G/DL (3.4-5.0) Globulin 4.3 g/dL Albumin/Globulin Ratio 0.8 (1.0-2.7) Lipase 40 U/L (73-393) Urine Color Yellow Urine Appearance Clear Urine pH 5 (4.5-8.0) Urine Specific [place] 1.020 (1.005-1.035) Urine Protein 1+ (NEGATIVE) Urine Glucose (UA) Negative (NEGATIVE) Urine Ketones 1+ (NEGATIVE) Urine Blood 1+ (NEGATIVE) Urine Nitrite Negative (NEGATIVE) Urine Bilirubin Negative (NEGATIVE) Urine Urobilinogen Normal MG/DL (0.0-1.0) Urine Leukocyte Esterase 1+ (NEGATIVE) Urine RBC 0-2 /HPF (0 - 0) Urine WBC 0-2 /HPF (0 - 0) Urine Squamous Epithelial Cells Occasional /LPF Urine Bacteria Occasional /HPF (NONE) Last Vital Signs Date Time Temp Pulse Resp B/P (MAP) Pulse Ox O2 Delivery O2 Flow Rate FiO2 10/22/18 16:34 98.4 74 18 108/60 96 Room Air Status: improved Disposition: HOME, SELF-CARE Scripts Dicyclomine Hcl* (DICYCLOMINE HCL*) 10 Mg Capsule 10 MG PO QID, #20 CAP Prov: Rick Guzmna MD 10/22/18 Ondansetron (Zofran) 4 Mg Tablet 4 MG ORAL Q6H PRN for Nausea & Vomiting, #30 TAB 0 Refills Prov: Rick Guzman MD 10/22/18 Referrals: NOT CHOSEN IPA/,REFERRING (PCP) Rick Guzman MD Oct 22, 2018 17:52
[2018-10-22 18:02] LABS: HEMATOCRIT 47.1 % (42.0-52.0); HEMOGLOBIN 15.4 G/DL (14.2-18.0); MEAN CORPUSCULAR VOLUME 86 FL (80-99); PLATELET COUNT 210 K/UL (150-450); RED BLOOD COUNT 5.45 M/UL (4.70-6.10); RED CELL DISTRIBUTION WIDTH 12.1 % (11.6-14.8); WHITE BLOOD COUNT 11.9 K/UL (4.8-10.8)
[2018-10-22 18:20] LABS: ANION GAP 9 mmol/L (5-15); BLOOD UREA NITROGEN 17 mg/dL (7-18); CALCIUM 8.9 MG/DL (8.5-10.1); CARBON DIOXIDE 29 MMOL/L (21-32); CHLORIDE 104 MMOL/L (98-107); CREATININE 1.1 MG/DL (0.55-1.30); POTASSIUM 4.1 MMOL/L (3.5-5.1); SODIUM 142 MMOL/L (136-145)
[2018-10-22 18:25] LABS: ALANINE AMINOTRANSFERASE 26 U/L (12-78); ALBUMIN 3.4 G/DL (3.4-5.0); ALBUMIN/GLOBULIN RATIO 0.8 (1.0-2.7); ALKALINE PHOSPHATASE 108 U/L (46-116); ASPARTATE AMINO TRANSFERASE 21 U/L (15-37); BILIRUBIN,TOTAL 0.8 MG/DL (0.2-1.0)
[2018-10-22 18:30] VITALS: BP 135/51
[2018-10-22 18:41] LABS: APPEARANCE,URINE CLEAR; BILIRUBIN, URINE NEGATIVE (NEGATIVE); GLUCOSE, URINE (UA) NEGATIVE (NEGATIVE); KETONES,URINE 1+ (NEGATIVE); LEUKOCYTE ESTERASE ,URINE 1+ (NEGATIVE); NITRITE,URINE NEGATIVE (NEGATIVE); PH,URINE 5 (4.5-8.0); PROTEIN,URINE 1+ (NEGATIVE); UROBILINOGEN,URINE NORMAL MG/DL (0.0-1.0)
[2018-10-22 18:44] LABS: COLOR,URINE YELLOW
--- NOTE | 2018-10-22 19:12 | NUR ---
HAND-OFF: Report given to Bob CREWS.
[2018-10-22] MEDS ORDERED: DICYCLOMINE HCL10 MG PO (19:42)
[2018-10-22] MEDS ORDERED: ZOFRAN4 MG ORAL (19:42)
[2018-10-22 20:01] VITALS: BP 131/52
[2018-10-22 20:02] VITALS: BP 131/52
--- NOTE | 2018-10-22 20:03 | NUR ---
ED Nurse Note: Pt is DC per ERMD orders. pt is alert and oriented times 4. pt has left with all belongings as well as DC notes and prescriptions. pt stated understanding of DC notes and prescriptions. pt vital signs, status and condition is reported to ERMD and transmitter engineer in charge prior to DC. pt is stable for DC, pt vital signs are stable. pt is able to ambulate with no variance. pt is instructed to report back to ER if any variance in condition. pt is instructed to follow up with primary provider as soon as possible. ID band removed.
[2018-10-24] MEDS ORDERED: Sodium Chloride 550 ML IV SCH ×2 (16:45→17:00)
== END 2018-10-22 20:00 | disposition home or self-care (01) ==
LOC: EDBD 16:38 → EMR 17:13
DX: K52.9 Noninfective gastroenteritis and colitis, unspecified (principal); I10 Essential (primary) hypertension; E11.9 Type 2 diabetes mellitus without complications; Z86.73 Personal history of transient ischemic attack (TIA), and cerebral infarction without residual deficits
CPT/HCPCS: 36415; 80053; 81003; 83690; 84484; 85007; 85025; 96374; 99284; J2405; J7040

== ENCOUNTER 2019-01-13 21:02 | Inpatient (IN) | payer MEDICARE, OTHER ==
[~2019-01-13] VITALS: Ht 180.3 cm; Wt 98.4 kg
[~2019-01-13 21:02] MED LIST changes: +BENAZEPRIL HCL5 MG ORAL; +DICYCLOMINE HCL10 MG PO; +NORVASC2.5 MG ORAL; +ZOFRAN4 MG ORAL
--- NOTE | 2019-01-13 21:04 | NUR ---
ED Nurse Note: patient presents BIBA with complaints of ALOC x 45 seconds. Patient is accompanied by his son.
[2019-01-13 21:05] VITALS: BP 144/90
--- NOTE | 2019-01-13 21:12 | Emergency Room Report ---
History of Present Illness General Chief Complaint: Syncope Source: Patient Present Illness HPI This is a 78-year-old male with a history of diabetes and high blood pressure. He presents with an altered mental status/syncope for about 3040 seconds. According to his son, he was eating dinner and had to stop again he did not feel well. He was sitting down and became very diaphoretic. He was staring off into space and stiffen up. The son try to palpate a pulse but said he cannot fill anything. This lasted about 3040 seconds. He lay his father down and patient became better. He called 911. Patient denies any chest pain. No nausea no vomiting. No fever chills. Never had this problem before. Allergies: Coded Allergies: NO KNOWN DRUG ALLERGIES (Unverified Allergy, Unknown, 01/24/15) Patient History Past Medical History: see triage record, old chart reviewed, DM, HTN, CVA/TIA Past Surgical History: other Pertinent Family History: none Social History: Denies: smoking Immunizations: other Reviewed Nursing Documentation: PMH: Agreed; PSxH: Agreed Nursing Documentation-PMH Past Medical History: No History, Except For Hx Hypertension: Yes Hx Diabetes: Yes Hx Cancer: No Hx Neurological Problems: No Hx Cerebrovascular Accident: Yes - 2018 Review of Systems Eye: Denies: eye pain, blurred vision ENT: Denies: ear pain, nose congestion, throat swelling Respiratory: Denies: cough, shortness of breath Cardiovascular: Denies: chest pain, palpitations Gastrointestinal: Denies: abdominal pain, diarrhea, nausea, vomiting Musculoskeletal: Denies: back pain, joint pain Skin: Denies: rash Neurological: Denies: headache, numbness Endocrine: Denies: increased thirst, increased urine Hematologic/Lymphatic: Denies: easy bruising All Other Systems: negative except mentioned in HPI Physical Exam Vital Signs Date Time Temp Pulse Resp B/P (MAP) Pulse Ox O2 Delivery O2 Flow Rate FiO2 01/13/19 20:52 98.4 56 16 144/90 98 Room Air vitals normal Sp02 EP Interpretation: reviewed, normal General Appearance: well appearing, no apparent distress, alert Head: normocephalic, atraumatic Eyes: bilateral eye PERRL, bilateral eye EOMI ENT: hearing grossly normal, normal pharynx Neck: full range of motion, supple, no meningismus Respiratory: chest non-tender, lungs clear, normal breath sounds Cardiovascular #1: regular rate, rhythm, no murmur Gastrointestinal: normal bowel sounds, non tender, no mass, no organomegaly, no bruit, non-distended Musculoskeletal: back normal, gait/station normal, normal range of motion Psychiatric: mood/affect normal Skin: warm/dry Medical Decision Making Diagnostic Impression: Primary Impression: Syncope Qualified Codes: R55 - Syncope and collapse Additional Impression: Bigeminy ER Course Patient presents with prolonged syncope. On the monitor he showed bigeminy his initially. Now back to sinus rhythm without any ectopy. I suspect that he had a prolonged arrhythmia causing his syncopal episode. Even though his BNP is elevated, his oxidation is on the percent. He has no respiratory distress or rales on exam. He does not complaining of being short of breath. He said he is back to normal. Patient will be admitted. I discussed the case with Dr. Pimentel for admission. Lab Results Impression labs unremarkable EKG Diagnostic Results Rate: normal Rhythm: NSR ST Segments: other - bigeminy Rhythm Strip Diag. Results EP Interpretation: yes Rate: 69 Rhythm: NSR, no PVC's, no ectopy Chest X-Ray Diagnostic Results Chest X-Ray Diagnostic Results : Chest X-Ray Ordered: Yes # of Views/Limited/Complete: 1 View Indication: Chest Pain EP Interpretation: Yes Interpretation: no consolidation, no effusion, no pneumothorax, no acute cardiopulmonary disease Impression: No acute disease Electronically Signed by: Bennett Rodriguez MD Last Vital Signs Date Time Temp Pulse Resp B/P (MAP) Pulse Ox O2 Delivery O2 Flow Rate FiO2 01/13/19 21:05 98.4 58 16 144/90 98 Room Air Status: improved Disposition: ADMITTED INPATIENT Condition: Serious Bennett Rodriguez MD Jan 13, 2019 21:12
--- NOTE | 2019-01-13 21:29 | NUR ---
ED Nurse Note: labs drawn, vital signs stable. patient resting with son at bedside.
[2019-01-13 21:43] VITALS: BP 149/128
[2019-01-13 21:44] LABS: BASOPHILS % (AUTO) 1.2 % (0.0-2.0); EOSINOPHILS % (AUTO) 1.1 % (0.0-3.0); HEMATOCRIT 47.5 % (42.0-52.0); HEMOGLOBIN 15.4 G/DL (14.2-18.0); LYMPHOCYTES % (AUTO) 41.9 % (20.0-45.0); MEAN CORPUSCULAR VOLUME 86 FL (80-99); MONOCYTES % (AUTO) 7.9 % (1.0-10.0); NEUTROPHILS % (AUTO) 47.9 % (45.0-75.0); PLATELET COUNT 217 K/UL (150-450); RED BLOOD COUNT 5.55 M/UL (4.70-6.10); RED CELL DISTRIBUTION WIDTH 12.5 % (11.6-14.8); WHITE BLOOD COUNT 8.3 K/UL (4.8-10.8)
[2019-01-13 21:52] LABS: APPEARANCE,URINE CLEAR; BILIRUBIN, URINE NEGATIVE (NEGATIVE); GLUCOSE, URINE (UA) NEGATIVE (NEGATIVE); KETONES,URINE 2+ (NEGATIVE); LEUKOCYTE ESTERASE ,URINE 1+ (NEGATIVE); NITRITE,URINE NEGATIVE (NEGATIVE); PH,URINE 7 (4.5-8.0); PROTEIN,URINE 1+ (NEGATIVE); UROBILINOGEN,URINE NORMAL MG/DL (0.0-1.0)
[2019-01-13 21:54] LABS: COLOR,URINE YELLOW
[2019-01-13 22:01] LABS: ANION GAP 8 mmol/L (5-15); BLOOD UREA NITROGEN 12 mg/dL (7-18); CALCIUM 9.5 MG/DL (8.5-10.1); CARBON DIOXIDE 31 MMOL/L (21-32); CHLORIDE 103 MMOL/L (98-107); CREATININE 1.1 MG/DL (0.55-1.30); POTASSIUM 4.3 MMOL/L (3.5-5.1); SODIUM 142 MMOL/L (136-145)
[2019-01-13 22:12] LABS: ALANINE AMINOTRANSFERASE 29 U/L (12-78); ALBUMIN 3.4 G/DL (3.4-5.0); ALBUMIN/GLOBULIN RATIO 0.7 (1.0-2.7); ALKALINE PHOSPHATASE 103 U/L (46-116); ASPARTATE AMINO TRANSFERASE 22 U/L (15-37); BILIRUBIN,TOTAL 0.7 MG/DL (0.2-1.0); CREATINE KINASE 157 U/L (26-308)
--- NOTE | 2019-01-13 22:28 | NUR ---
ED Nurse Note: called and gave report to Volodymyr RN. PAtient will be accompanied to floor by clinical study manager and microcomputer technician. Patient's son will meet him. Belonings sheet complete.
--- NOTE | 2019-01-13 22:30 | NUR ---
NURSE NOTES: Received report from Abdelrahman Whitakre RN. regarding patient's arrival on TELE floor from ED. Belongings checklist done at bedside and head to toe assessment initiated. No skin breakdowns or issues noted. Patient in bed AAO X4 with no complaints of acute pain or discomfort noted. Kept clean, dry, and comfortable in bed. Given urinal to use PRN, states that he can stand and walk to the bathroom with assist. Safety precaution in place; siderails x2, call light within reach, bed in lowest position, brakes and alarm on at all times. Needs and wants anticipated and attended. Will continue plan of care and monitor for any changes noted.
[2019-01-13 23:00] VITALS: BP 139/72
--- NOTE | 2019-01-13 23:30 | NUR ---
NURSE NOTES: Called Love Pimentel MD. regarding patients arrival to the unit and for any admit orders; left message and is awaiting call back. Will continue to monitor
[2019-01-14] VITALS: BP 143/68
--- NOTE | 2019-01-14 02:00 | NUR ---
NURSE NOTES: Called and left message for Love Banks MD for admit orders. Notified that Winter Shafer MD is the covering physician, called and left message. Awaiting call back and will continue to monitor
--- NOTE | 2019-01-14 02:30 | NUR ---
NURSE NOTES: Received call back from Love Pimentel MD. New orders received and carried out. Will continue plan of care and monitor for any changes noted.
--- NOTE | 2019-01-14 02:35 | NUR ---
NURSE NOTES: Winter Shafer MD is not covering for Love Pimentel MD. Confirmed by Love Pimentel MD. Will continue to monitor
[2019-01-14 04:00] VITALS: BP 131/47
--- NOTE | 2019-01-14 04:01 | NUR ---
NURSE NOTES: Patient in bed with S/S of distress at this time. Will continue to monitor
[2019-01-14 04:52] LABS: EOSINOPHILS % (AUTO) 0.9 % (0.0-3.0); HEMATOCRIT 41.4 % (42.0-52.0); LYMPHOCYTES % (AUTO) 33.8 % (20.0-45.0); MEAN CORPUSCULAR VOLUME 84 FL (80-99); MONOCYTES % (AUTO) 7.8 % (1.0-10.0); NEUTROPHILS % (AUTO) 56.6 % (45.0-75.0); PLATELET COUNT 222 K/UL (150-450); RED CELL DISTRIBUTION WIDTH 12.4 % (11.6-14.8); WHITE BLOOD COUNT 9.2 K/UL (4.8-10.8)
[2019-01-14 05:33] LABS: ANION GAP 11 mmol/L (5-15); BLOOD UREA NITROGEN 13 mg/dL (7-18); CALCIUM 8.7 MG/DL (8.5-10.1); CARBON DIOXIDE 25 MMOL/L (21-32); CHLORIDE 106 MMOL/L (98-107); CREATININE 0.9 MG/DL (0.55-1.30); POTASSIUM 4.2 MMOL/L (3.5-5.1); SODIUM 142 MMOL/L (136-145)
[2019-01-14] MEDS ORDERED: Morphine Sulfate 2mg/ml Inj(IV/IM USE ONLY) IVP PRN (06:00)
[2019-01-14] MEDS: GlipiZIDE 5mg tab ORAL SCH ×2 (06:19→17:08)
[2019-01-14] MEDS: D5 1/2NS 1,000 ML IV SCH ×2 (06:19→21:49)
[2019-01-14] MEDS: NovoLOG Insulin Flexpen SUBQ SCH ×4 (06:20→21:48)
--- NOTE | 2019-01-14 07:35 | NUR ---
HAND-OFF: Report given to Winter Fall RN. Patient in bed with S/S of distress at this time. Endorsed plan of care.
[2019-01-14 08:00] VITALS: BP 149/77
[2019-01-14] MEDS: Dicyclomine 10mg Cap ORAL SCH ×4 (08:30→21:48)
[2019-01-14] MEDS: Benazepril 10mg tab ORAL SCH (08:30)
[2019-01-14] MEDS ORDERED: Indomethacin 75 MG CAPSULE.ER ORAL SCH (09:00)
--- NOTE | 2019-01-14 11:14 | Consultation ---
History of Present Illness General Date patient seen: Jan 14, 2019 Chief Complaint: Syncope Present Illness HPI 78-year-old male with a history DM, HTN, CVA/TIA, carotid stenosis, with L endarterectomy presented to ER with an altered mental status/syncope. According to his son, he was eating dinner and had to stop again he did not feel well. He was sitting down and became very diaphoretic. He was staring off into space and stiffen up. He lay his father down and patient became better. He was brought in by paramedics and was evaluated in ER. Patient denied any chest pain, nausea no vomiting. He is admitted to telemetry for further evaluation. Allergies: Coded Allergies: NO KNOWN DRUG ALLERGIES (Unverified Allergy, Unknown, 01/24/15) Medication History Scheduled Amlodipine Besylate (Norvasc), 10 MG ORAL DAILY, (Reported) Amlodipine Besylate (Norvasc), Unknown Dose ORAL DAILY, (Reported) Benazepril Hcl (Benazepril Hcl), Unknown Dose ORAL DAILY, (Reported) Colchicine (Colcrys), 0.6 MG PO ONCE Dicyclomine Hcl* (Dicyclomine Hcl*), 10 MG PO QID Glipizide (Glipizide), 10 MG PO BIDAC, (Reported) Indomethacin* (Indomethacin*), 50 MG ORAL THREE TIMES A DAY Scheduled PRN Ondansetron (Zofran), 4 MG ORAL Q6H PRN for Nausea & Vomiting Miscellaneous Medications Glipizide (Glipizide), Unknown Dose PO, (Reported) Unable to Obtain Medications (Unable To Obtain Meds), (Reported) Patient History Healthcare decision maker Resuscitation status Full Code Advanced Directive on File Past Medical/Surgical History Past Medical/Surgical History: (1) History of CVA (cerebrovascular accident) (2) History of endarterectomy (3) Diabetes (4) HTN (hypertension) (5) Carotid stenosis Review of Systems All Other Systems: negative except mentioned in HPI Physical Exam General Appearance: WD/WN, no apparent distress Lines, tubes and drains: peripheral HEENT: normocephalic, atraumatic Neck: non-tender, normal alignment Respiratory/Chest: chest wall non-tender, lungs clear, normal breath sounds Breasts: no masses Cardiovascular/Chest: normal rate Abdomen: normal bowel sounds, soft Last 24 Hour Vital Signs Date Time Temp Pulse Resp B/P (MAP) Pulse Ox O2 Delivery O2 Flow Rate FiO2 01/14/19 09:00 Room Air 01/14/19 08:30 149/77 01/14/19 08:29 94 149/77 01/14/19 08:00 72 01/14/19 08:00 98.1 66 20 149/77 (101) 95 01/14/19 04:00 96.7 65 19 131/47 (75) 95 01/14/19 04:00 71 01/14/19 00:00 97.8 67 18 143/68 (93) 97 01/14/19 00:00 67 01/13/19 23:10 Room Air 01/13/19 23:00 66 01/13/19 23:00 98.1 70 20 139/72 (94) 96 01/13/19 22:30 98.4 64 18 149/128 99 Room Air 01/13/19 21:43 98.4 64 18 149/128 99 Room Air 01/13/19 21:05 98.4 58 16 144/90 98 Room Air 01/13/19 20:52 98.4 56 16 144/90 98 Room Air Intake and Output 01/13/19 01/14/19 19:00 07:00 Intake Total 150 ml Output Total 450 ml Balance -300 ml Intake Oral 0 ml Other 150 ml Output Urine Total 450 ml # Voids 2 Laboratory Tests Test 01/13/19 21:26 01/13/19 21:41 01/14/19 03:50 White Blood Count 8.3 K/UL (4.8-10.8) 9.2 K/UL (4.8-10.8) Red Blood Count 5.55 M/UL (4.70-6.10) 4.90 M/UL (4.70-6.10) Hemoglobin 15.4 G/DL (14.2-18.0) 14.0 G/DL (14.2-18.0) L Hematocrit 47.5 % (42.0-52.0) 41.4 % (42.0-52.0) L Mean Corpuscular Volume 86 FL (80-99) 84 FL (80-99) Mean Corpuscular Hemoglobin 27.8 PG (27.0-31.0) 28.6 PG (27.0-31.0) Mean Corpuscular Hemoglobin Concent 32.5 G/DL (32.0-36.0) 33.9 G/DL (32.0-36.0) Red Cell Distribution Width 12.5 % (11.6-14.8) 12.4 % (11.6-14.8) Platelet Count 217 K/UL (150-450) 222 K/UL (150-450) Mean Platelet Volume 7.4 FL (6.5-10.1) 7.9 FL (6.5-10.1) Neutrophils (%) (Auto) 47.9 % (45.0-75.0) 56.6 % (45.0-75.0) Lymphocytes (%) (Auto) 41.9 % (20.0-45.0) 33.8 % (20.0-45.0) Monocytes (%) (Auto) 7.9 % (1.0-10.0) 7.8 % (1.0-10.0) Eosinophils (%) (Auto) 1.1 % (0.0-3.0) 0.9 % (0.0-3.0) Basophils (%) (Auto) 1.2 % (0.0-2.0) 1.0 % (0.0-2.0) Prothrombin Time 10.8 SEC (9.30-11.50) Prothromb Time International Ratio 1.0 (0.9-1.1) Activated Partial Thromboplast Time 25 SEC (23-33) Sodium Level 142 MMOL/L (136-145) 142 MMOL/L (136-145) Potassium Level 4.3 MMOL/L (3.5-5.1) 4.2 MMOL/L (3.5-5.1) Chloride Level 103 MMOL/L (98-107) 106 MMOL/L (98-107) Carbon Dioxide Level 31 MMOL/L (21-32) 25 MMOL/L (21-32) Anion Gap 8 mmol/L (5-15) 11 mmol/L (5-15) Blood Urea Nitrogen 12 mg/dL (7-18) 13 mg/dL (7-18) Creatinine 1.1 MG/DL (0.55-1.30) 0.9 MG/DL (0.55-1.30) Estimat Glomerular Filtration Rate mL/min (>60) mL/min (>60) Glucose Level 176 MG/DL (74-106) H 167 MG/DL (74-106) H Calcium Level 9.5 MG/DL (8.5-10.1) 8.7 MG/DL (8.5-10.1) Total Bilirubin 0.7 MG/DL (0.2-1.0) Aspartate Amino Transf (AST/SGOT) 22 U/L (15-37) Alanine Aminotransferase (ALT/SGPT) 29 U/L (12-78) Alkaline Phosphatase 103 U/L (46-116) Total Creatine Kinase 157 U/L (26-308) Creatine Kinase MB 2.0 NG/ML (0.0-3.6) Creatine Kinase MB Relative Index 1.2 Troponin I 0.007 ng/mL (0.000-0.056) 0.010 ng/mL (0.000-0.056) Pro-B-Type Natriuretic Peptide 1242 pg/mL (0-125) H Total Protein 8.2 G/DL (6.4-8.2) Albumin 3.4 G/DL (3.4-5.0) Globulin 4.8 g/dL Albumin/Globulin Ratio 0.7 (1.0-2.7) L Urine Color Yellow Urine Appearance Clear Urine pH 7 (4.5-8.0) Urine Specific [place] 1.010 (1.005-1.035) Urine Protein 1+ (NEGATIVE) H Urine Glucose (UA) Negative (NEGATIVE) Urine Ketones 2+ (NEGATIVE) H Urine Blood Negative (NEGATIVE) Urine Nitrite Negative (NEGATIVE) Urine Bilirubin Negative (NEGATIVE) Urine Urobilinogen Normal MG/DL (0.0-1.0) Urine Leukocyte Esterase 1+ (NEGATIVE) H Urine RBC 0-2 /HPF (0 - 0) H Urine WBC 2-4 /HPF (0 - 0) Urine Squamous Epithelial Cells None /LPF (NONE/OCC) Urine Bacteria Few /HPF (NONE) Urine Hyaline Casts 5-10 /LPF (NONE) H Hemoglobin A1c 6.8 % (4.3-6.0) H Height (Feet): 5 Height (Inches): 11.00 Weight (Pounds): 217 Medications Current Medications Medications (Trade) Dose Ordered Sig/Raji Route PRN Reason Start Time Stop Time Status Last Admin Dose Admin Amlodipine Besylate (Norvasc) 10 mg DAILY ORAL 01/14/19 09:00 02/13/19 08:59 01/14/19 08:29 Benazepril HCl (Lotensin) 5 mg DAILY ORAL 01/14/19 09:00 02/13/19 08:59 01/14/19 08:30 Dextrose (Dextrose 50%) 25 ml Q30M PRN IV Hypoglycemia 01/14/19 02:45 02/13/19 02:44 Dextrose (Dextrose 50%) 50 ml Q30M PRN IV Hypoglycemia 01/14/19 02:45 02/13/19 02:44 Dextrose/Sodium Chloride 1,000 ml @ 60 mls/hr [id number] IV 01/14/19 06:00 02/13/19 05:59 01/14/19 06:19 Dicyclomine HCl (Bentyl) 10 mg QID ORAL 01/14/19 09:00 02/13/19 08:59 01/14/19 08:30 Glipizide (Glucotrol) 10 mg BIAC ORAL 01/14/19 06:30 02/13/19 06:29 01/14/19 06:19 Insulin Aspart (NovoLOG) BEFORE MEALS AND HS SUBQ 01/14/19 06:30 02/13/19 06:29 01/14/19 06:20 Morphine Sulfate (Morphine Sulfate) 2 mg Q4H PRN IVP Severe Pain (Pain Scale 7-10) 01/14/19 06:00 01/21/19 05:59 Ondansetron HCl (Zofran) 4 mg Q6H PRN ORAL Nausea & Vomiting 01/14/19 02:45 02/13/19 02:44 Assessment/Plan Problem List: (1) Acute encephalopathy ICD Codes: G93.40 - Encephalopathy, unspecified SNOMED: 41406963, 357145677 (2) Arrhythmia ICD Codes: I49.9 - Cardiac arrhythmia, unspecified SNOMED: 848911803 (3) Bigeminy ICD Codes: I49.9 - Cardiac arrhythmia, unspecified SNOMED: 25410816 (4) History of endarterectomy ICD Codes: Z98.890 - Other specified postprocedural states SNOMED: 839060952 (5) HTN (hypertension) ICD Codes: I10 - Essential (primary) hypertension SNOMED: 60780615 (6) Diabetes ICD Codes: E11.9 - Type 2 diabetes mellitus without complications SNOMED: 32615982 (7) History of CVA (cerebrovascular accident) ICD Codes: Z86.73 - Personal history of transient ischemic attack (TIA), and cerebral infarction without residual deficits SNOMED: 086126137 Diagnosis [place] I: telemetry monitoring echocardiogram cardiology evaluation sliding scale diabetic diet Torrie Pak MD Jan 14, 2019 11:14
[2019-01-14 12:00] VITALS: BP 142/79
--- NOTE | 2019-01-14 14:46 | NUR ---
CASE MANAGEMENT:REVIEW 78 YR OLD MALE BIBA FROM HOME CC: DIZZINESS AND SYNCOPE SI: SYNCOPE. BIGEMINY 98.5 56 16 144/90 98% ON RA GLUCOSE+176 BNP+1242 IS: 500CC NS BOLUS CHEST XRAY : TO TELEMETRY UNIT IS: IVF@60/HR NORVASC PO QD LOTENSIN PO QD GLIPIZIDE PO BID
--- NOTE | 2019-01-14 15:33 | Diagnostic Imaging Report ---
Indication: Chest pain Technique: One view of the chest Comparison: none Findings: Lungs and pleural spaces are clear. Heart size is upper limits normal Impression: No acute process
[2019-01-14 16:00] VITALS: BP 143/85
--- NOTE | 2019-01-14 19:30 | NUR ---
NURSE NOTES: received report from Winter Fall RN. Pt is using bathroom w/o distress in RA. Family is at the bedside. Pt wanted have prayer time for his taoist. IV was disconnected for the praying time as pt requested. SR in the monitor. Bed alarm on, bed in lowest, and breaks are engaged. Call light and side table are w/in reach. Will follow plans of care.
[2019-01-14 20:00] VITALS: BP 137/74
--- NOTE | 2019-01-14 20:03 | NUR ---
HAND-OFF: Report given to ELEONORA Awan. Plan of care endorsed.
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
[2019-01-15] VITALS: BP 146/79
--- NOTE | 2019-01-15 | NUR ---
NURSE NOTES: Pt was assisted to wearing gown. Linen changed. SR in the Monitor. Will continue to monitor.
[2019-01-15 04:00] VITALS: BP 139/71
[2019-01-15] MEDS: NovoLOG Insulin Flexpen SUBQ SCH ×2 (06:30→11:30)
--- NOTE | 2019-01-15 06:30 | Consultation ---
DATE OF CONSULTATION: 01/13/2019 CARDIOLOGY CONSULTATION REASON FOR CONSULTATION: Syncope. HISTORY OF PRESENT ILLNESS: This 78-year-old male with a history of type 2 diabetes and hypertension, had a witnessed syncopal episode by his son that lasted less than a minute. It occurred after he ate dinner. While he was eating, he stopped, did not feel well and apparently was diaphoretic and staring off of the space for up to 45 seconds. The patient's son could not palpate a pulse however once the patient laid down he improved. The patient states that he had been fasting for his usual [place]anda[place] prayer services but did not feel well this particular day during the fast. While he has fasted in the past, he has never had problems like this before. It is unclear whether he was hypoglycemic during the period noted. PAST MEDICAL HISTORY: Includes hypertension, type 2 diabetes mellitus, history of cerebrovascular accident with carotid stenosis. ALLERGIES: None. MEDICATIONS: Reviewed. SOCIAL HISTORY: Nonsmoker. No alcohol or substance abuse. REVIEW OF SYSTEMS: A 10-point review of systems performed. All systems negative other than noted above. PHYSICAL EXAMINATION: VITAL SIGNS: Blood pressure 144/90, pulse 56, respiratory rate 16, afebrile. HEENT: Normocephalic and atraumatic. Conjunctivae are pink. Oropharynx clear. No bruits. LUNGS: Clear. Carotid upstrokes without delay. HEART: Regular rhythm rate. Normal S1, S2 with a fourth heart sound. ABDOMEN: Soft. EXTREMITIES: No edema. LABORATORY AND DIAGNOSTIC DATA: Monitor revealed sinus rhythm with bigeminy at times and sinus arrhythmia. EKG reveals sinus rhythm with bigeminy. White count 8, hemoglobin 15. Troponin negative. Chemistry panel within normal limits other than glucose of 167. IMPRESSION: Syncopal episode likely due to metabolic derangement from diabetes, vasovagal contribution can be considered as well. The likelihood of a sustained cardiac arrhythmias should be entertained. Recommend cardiac monitoring. Antiplatelet therapy. Orthostatic precautions. Titrate antihypertensives with hold parameters for low blood pressure. Check MRI of the brain. Carotid duplex study. An echocardiogram with consideration for ischemia workup to follow. Matthew David M.D. DR: Deborah JOB#: [id number] CC:
[2019-01-15] MEDS: GlipiZIDE 5mg tab ORAL SCH (06:36)
[2019-01-15 06:37] LABS: HEMATOCRIT 43.4 % (42.0-52.0); HEMOGLOBIN 14.5 G/DL (14.2-18.0); MEAN CORPUSCULAR VOLUME 85 FL (80-99); PLATELET COUNT 222 K/UL (150-450); RED BLOOD COUNT 5.11 M/UL (4.70-6.10); RED CELL DISTRIBUTION WIDTH 12.5 % (11.6-14.8); WHITE BLOOD COUNT 8.7 K/UL (4.8-10.8)
--- NOTE | 2019-01-15 06:45 | Progress Note ---
DATE: 01/14/2019 CARDIOLOGY PROGRESS NOTE SUBJECTIVE: The patient has no new complaints. He denies dizziness. He feels like his usual self. He wants to go home. Troponins are negative. Vital signs within normal limits, no orthostatic symptoms or findings noted. PHYSICAL EXAMINATION: VITAL SIGNS: Blood pressure 143/85, pulse 69, respiratory rate 21. LUNGS: Clear. CARDIAC: Regular. ABDOMEN: Soft. No edema. NEUROLOGIC: Nonfocal. LABORATORY AND DIAGNOSTIC DATA: Monitored rhythm, sinus and sinus bradycardia, occasional PVCs. IMPRESSION: 1. Vasovagally mediated syncopal episode, elevated natriuretic peptide assay with no clinical signs of acute congestive heart failure. 2. Hypertensive heart disease. 3. History of cerebrovascular accident. 4. Carotid stenosis. PLAN: 1. monitoring tech. 2. Check orthostatics. 3. Echocardiogram. 4. Carotid duplex. Matthew David M.D. DR: Deborah JOB#: [id number] CC:
[2019-01-15 07:09] LABS: ANION GAP 8 mmol/L (5-15); BLOOD UREA NITROGEN 11 mg/dL (7-18); CALCIUM 8.6 MG/DL (8.5-10.1); CARBON DIOXIDE 27 MMOL/L (21-32); CHLORIDE 106 MMOL/L (98-107); CREATININE 0.9 MG/DL (0.55-1.30); SODIUM 141 MMOL/L (136-145)
--- NOTE | 2019-01-15 07:10 | NUR ---
HAND-OFF: Report given to Winter Fall RN.
--- NOTE | 2019-01-15 07:28 | NUR ---
NURSE NOTES: Received report from ELEONORA Awan. Pt is sitting up having breakfast, no distress noted. Bed in lowest position, Side rails upx2, call light within reach. Will continue to monitor.
[2019-01-15 08:00] VITALS: BP 156/89
[2019-01-15] MEDS: Dicyclomine 10mg Cap ORAL SCH ×2 (08:31→12:15)
[2019-01-15] MEDS: Benazepril 10mg tab ORAL SCH (08:33)
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
--- NOTE | 2019-01-15 11:49 | Pulmonology Progress Note ---
Assessment/Plan Problems: (1) Acute encephalopathy (2) Arrhythmia (3) Bigeminy (4) History of endarterectomy (5) HTN (hypertension) (6) Diabetes (7) History of CVA (cerebrovascular accident) Assessment/Plan no new complains all reviewed vital signs stable wants to go home dc planning by primary Subjective ROS Limited/Unobtainable: No Constitutional: Reports: no symptoms HEENT: Repors: no symptoms Allergies: Coded Allergies: NO KNOWN DRUG ALLERGIES (Unverified Allergy, Unknown, 01/24/15) Objective Last 24 Hour Vital Signs Date Time Temp Pulse Resp B/P (MAP) Pulse Ox O2 Delivery O2 Flow Rate FiO2 01/15/19 09:00 Room Air 01/15/19 08:33 156/89 01/15/19 08:32 62 156/89 01/15/19 08:00 67 01/15/19 08:00 97.7 62 20 156/89 (111) 94 01/15/19 04:10 66 01/15/19 04:05 61 01/15/19 04:00 97.3 57 20 139/71 (93) 95 01/15/19 04:00 57 01/15/19 03:31 53 01/15/19 00:00 98.4 52 20 146/79 (101) 97 01/14/19 23:26 76 01/14/19 21:00 Room Air 01/14/19 20:00 98.4 64 20 137/74 (95) 98 01/14/19 19:48 61 01/14/19 16:00 69 01/14/19 16:00 98.1 69 21 143/85 (104) 96 01/14/19 12:00 98.1 68 21 142/79 (100) 96 01/14/19 12:00 67 Intake and Output 01/14/19 01/15/19 19:00 07:00 Intake Total 150 ml 240 ml Output Total 1200 ml 600 ml Balance -1050 ml -360 ml Intake Oral 0 ml Other 150 ml 240 ml Output Urine Total 1200 ml 600 ml # Voids 2 3 General Appearance: WD/WN HEENT: normocephalic, atraumatic Respiratory/Chest: chest wall non-tender, lungs clear Cardiovascular: normal peripheral pulses, normal rate Abdomen: normal bowel sounds, soft, non tender Genitourinary: normal external genitalia 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 Laboratory Tests 01/14/19 11:50: Troponin I 0.002 01/14/19 19:50: Troponin I 0.008 01/15/19 05:45: White Blood Count 8.7, Red Blood Count 5.11, Hemoglobin 14.5, Hematocrit 43.4, Mean Corpuscular Volume 85, Mean Corpuscular Hemoglobin 28.3, Mean Corpuscular Hemoglobin Concent 33.4, Red Cell Distribution Width 12.5, Platelet Count 222, Mean Platelet Volume 8.5, Neutrophils (%) (Auto) , Lymphocytes (%) (Auto) , Monocytes (%) (Auto) , Eosinophils (%) (Auto) , Basophils (%) (Auto) , Differential Total Cells Counted 100, Neutrophils % (Manual) 35L, Lymphocytes % (Manual) 50H, Monocytes % (Manual) 12H, Eosinophils % (Manual) 3, Basophils % ( Manual) 0, Band Neutrophils 0, Platelet Estimate Adequate, Platelet Morphology Normal, Sodium Level 141, Potassium Level 4.0, Chloride Level 106, Carbon Dioxide Level 27, Anion Gap 8, Blood Urea Nitrogen 11, Creatinine 0.9, Estimat Glomerular Filtration Rate , Glucose Level 98, Calcium Level 8.6 Current Medications Medications (Trade) Dose Ordered Sig/Raji Route PRN Reason Start Time Stop Time Status Last Admin Dose Admin Amlodipine Besylate (Norvasc) 10 mg DAILY ORAL 01/14/19 09:00 02/13/19 08:59 01/15/19 08:32 Benazepril HCl (Lotensin) 5 mg DAILY ORAL 01/14/19 09:00 02/13/19 08:59 01/15/19 08:33 Dextrose (Dextrose 50%) 25 ml Q30M PRN IV Hypoglycemia 01/14/19 02:45 02/13/19 02:44 Dextrose (Dextrose 50%) 50 ml Q30M PRN IV Hypoglycemia 01/14/19 02:45 02/13/19 02:44 Dextrose/Sodium Chloride 1,000 ml @ 60 mls/hr [id number] IV 01/14/19 06:00 02/13/19 05:59 01/14/19 21:49 Dicyclomine HCl (Bentyl) 10 mg QID ORAL 01/14/19 09:00 02/13/19 08:59 01/15/19 08:31 Glipizide (Glucotrol) 10 mg BIAC ORAL 01/14/19 06:30 02/13/19 06:29 01/15/19 06:36 Insulin Aspart (NovoLOG) BEFORE MEALS AND HS SUBQ 01/14/19 06:30 02/13/19 06:29 01/14/19 21:48 Morphine Sulfate (Morphine Sulfate) 2 mg Q4H PRN IVP Severe Pain (Pain Scale 7-10) 01/14/19 06:00 01/21/19 05:59 Ondansetron HCl (Zofran) 4 mg Q6H PRN ORAL Nausea & Vomiting 01/14/19 02:45 02/13/19 02:44 Torrie Pak MD Jan 15, 2019 11:48
[2019-01-15 12:00] VITALS: BP 141/73
--- NOTE | 2019-01-15 12:07 | Diagnostic Imaging Report ---
APPROVED REPORT CPT Code: 25372 Vascular Symptoms CVA/TIA: Doppler Spectral Velocity Analysis RightLeft arteries. The Doppler spectral flow analysis indicates the degree of stenosis is mild (40%) in the common carotid artery, mild to moderate (30-40%) in the internal carotid artery, and mild (30%) in the external carotid artery. VERTEBRAL/SUBCLAVIAN- The vertebral and subclavian arteries are within normal limits. arteries. The Doppler spectral flow analysis indicates the degree of stenosis is moderate (60-70%) in the common carotid artery, moderate (70-80%) in the internal carotid artery, and moderate (50%) in the external carotid artery. VERTEBRAL- The vertebral artery is patent, without evidence of stenosis or steal. SUBCLAVIAN- Moderate (70%) stenosis is in the proximal subclavian artery.
--- NOTE | 2019-01-15 15:04 | NUR ---
P.T NOTE: P.T EVALUATION COMPLETED. PATIENT IS CURRENTLY BASELINE INDEPENDENT. SKILLED P.T SERVICE NOT WARRANTED AT THIS TIME. D/C P.T SERVICES. THANK YOU FOR THIS REFERRAL. Addendum: 01/15/19 at 1504 by MINESH VARGAS PT Amended: Links added.
[2019-01-15] MEDS: D5 1/2NS 1,000 ML IV SCH (15:20)
--- NOTE | 2019-01-15 15:21 | General Progress Note ---
Assessment/Plan Problem List: (1) Diabetes ICD Codes: E11.9 - Type 2 diabetes mellitus without complications SNOMED: 21418372 (2) HTN (hypertension) ICD Codes: I10 - Essential (primary) hypertension SNOMED: 94689981 (3) DVT (deep vein thrombosis) in ICD Codes: O22.30 - Deep phlebothrombosis in , unspecified trimester; I82.409 - Acute embolism and thrombosis of unspecified deep veins of unspecified lower extremity SNOMED: 82959714, 111800324 (4) Weak ICD Codes: R53.1 - Weakness SNOMED: 40387579 (5) History of CVA (cerebrovascular accident) ICD Codes: Z86.73 - Personal history of transient ischemic attack (TIA), and cerebral infarction without residual deficits SNOMED: 313462813 Status: stable, progressing Subjective Constitutional: Reports: weakness Allergies: Coded Allergies: NO KNOWN DRUG ALLERGIES (Unverified Allergy, Unknown, 01/24/15) All Systems: reviewed and negative except above Subjective wants to go home Objective Last 24 Hour Vital Signs Date Time Temp Pulse Resp B/P (MAP) Pulse Ox O2 Delivery O2 Flow Rate FiO2 01/15/19 12:00 97.5 53 20 141/73 (95) 100 01/15/19 12:00 61 01/15/19 09:00 Room Air 01/15/19 08:33 156/89 01/15/19 08:32 62 156/89 01/15/19 08:00 67 01/15/19 08:00 97.7 62 20 156/89 (111) 94 01/15/19 04:10 66 01/15/19 04:05 61 01/15/19 04:00 97.3 57 20 139/71 (93) 95 01/15/19 04:00 57 01/15/19 03:31 53 01/15/19 00:00 98.4 52 20 146/79 (101) 97 01/14/19 23:26 76 01/14/19 21:00 Room Air 01/14/19 20:00 98.4 64 20 137/74 (95) 98 01/14/19 19:48 61 01/14/19 16:00 69 01/14/19 16:00 98.1 69 21 143/85 (104) 96 Intake and Output 01/14/19 01/15/19 19:00 07:00 Intake Total 150 ml 240 ml Output Total 1200 ml 600 ml Balance -1050 ml -360 ml Intake Oral 0 ml Other 150 ml 240 ml Output Urine Total 1200 ml 600 ml # Voids 2 3 Laboratory Tests 01/14/19 19:50: Troponin I 0.008 01/15/19 05:45: White Blood Count 8.7, Red Blood Count 5.11, Hemoglobin 14.5, Hematocrit 43.4, Mean Corpuscular Volume 85, Mean Corpuscular Hemoglobin 28.3, Mean Corpuscular Hemoglobin Concent 33.4, Red Cell Distribution Width 12.5, Platelet Count 222, Mean Platelet Volume 8.5, Neutrophils (%) (Auto) , Lymphocytes (%) (Auto) , Monocytes (%) (Auto) , Eosinophils (%) (Auto) , Basophils (%) (Auto) , Differential Total Cells Counted 100, Neutrophils % (Manual) 35L, Lymphocytes % (Manual) 50H, Monocytes % (Manual) 12H, Eosinophils % (Manual) 3, Basophils % ( Manual) 0, Band Neutrophils 0, Platelet Estimate Adequate, Platelet Morphology Normal, Sodium Level 141, Potassium Level 4.0, Chloride Level 106, Carbon Dioxide Level 27, Anion Gap 8, Blood Urea Nitrogen 11, Creatinine 0.9, Estimat Glomerular Filtration Rate , Glucose Level 98, Calcium Level 8.6 Height (Feet): 5 Height (Inches): 11.00 Weight (Pounds): 217 General Appearance: alert EENT: normal ENT inspection Neck: normal alignment Cardiovascular: normal peripheral pulses, normal rate, regular rhythm Respiratory/Chest: chest wall non-tender, lungs clear, normal breath sounds Abdomen: normal bowel sounds, non tender, soft Extremities: normal inspection Edema: no edema noted Arm (L), no edema noted Arm (R), no edema noted Leg (L), no edema noted Leg (R), no edema noted Pedal (L), no edema noted Pedal (R), no edema noted Generalized Neurologic: responsive, motor weakness Skin: normal pigmentation, warm/dry Kasi Pimentel DO Jan 15, 2019 15:21
[2019-01-15] MEDS ORDERED: D5 1/2NS 1000ml IV ONE (16:53)
--- NOTE | 2019-01-15 17:03 | NUR ---
NURSE NOTES: Pt was discharged per MD request. Heart monitor removed and returned to MT. IV removed. No swelling or redness noted. PT stable at time of DC
--- NOTE | 2019-01-16 02:00 | Progress Note ---
DATE: 01/15/2019 CARDIOLOGY PROGRESS NOTE SUBJECTIVE: The patient has no complaints. Denies chest pain, dizziness, or shortness of breath. No witnessed loss of consciousness. No difficulty with ambulation or mobilization. OBJECTIVE: VITAL SIGNS: Blood pressure 156/89, pulse 62, and respirations 20. Afebrile. Monitor, sinus and sinus bradycardia. No pauses. Carotid duplex revealed moderate stenosis in the left carotid. No bruits. LUNGS: Clear. CARDIAC: Regular. ABDOMEN: Soft. EXTREMITIES: No edema. IMPRESSION: 1. Syncopal episode. 2. Carotid stenosis on the left. 3. History of CVA. 4. Nonsustained ventricular arrhythmia. 5. Bigeminy. 6. Hypertensive heart disease. PLAN: 1. Vascular consultation regarding carotid disease. 2. Anti-platelet therapy with aspirin. 3. Statin therapy for LDL goal less than 70. 4. Avoid tighter blood pressure control. 5. Insulin coverage by sliding scale. 6. No beta-blockers in view of baseline sinus node disease. 7. Consider MRA and MRI of the neck and head. Matthew David M.D. DR: MARCE JOB#: [id number] CC:
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
--- NOTE | 2019-01-16 15:25 | Cardiology Report ---
APPROVED REPORT EKG Measurement Heart [id number] PA 176P56 [id number] Sinus rhythm with frequent premature ventricular complexes in a pattern of bigeminy Inferior infarct, age undetermined T wave abnormality, consider lateral ischemia Abnormal ECG
--- NOTE | 2019-01-16 22:01 | Cardiology Report ---
APPROVED REPORT EKG Measurement Heart [id number] PA 174P45 [id number] Normal sinus rhythm T wave abnormality, consider lateral ischemia Abnormal ECG
== END 2019-01-15 16:54 | disposition home or self-care (01) | DRG 312 ==
LOC: EDBD 21:02 → EMR 21:31 → 2E 21:34 → EDBEDREQ 21:50
DX: R55 Syncope and collapse (principal); N39.0 Urinary tract infection, site not specified; R00.8 Other abnormalities of heart beat; E11.9 Type 2 diabetes mellitus without complications; Z86.73 Personal history of transient ischemic attack (TIA), and cerebral infarction without residual deficits; I11.9 Hypertensive heart disease without heart failure; I65.22 Occlusion and stenosis of left carotid artery; I49.8 Other specified cardiac arrhythmias; Z86.718 Personal history of other venous thrombosis and embolism
CPT/HCPCS: 36415; 71045; 80048; 80053; 81003; 82550; 82553; 82962; 83036; 83880; 84484; 85007; 85025; 85610; 85730; 93005; 93306; 93880; 99285; J1815

== ENCOUNTER 2019-02-04 12:31 | Emergency (ER) | payer MEDICARE, OTHER ==
[~2019-02-04] VITALS: Ht 180.3 cm; Wt 102.1 kg
[2019-02-04 12:36] VITALS: BP 134/69
--- NOTE | 2019-02-04 12:43 | NUR ---
ED Nurse Note: Pt. AAOx4. Ambulatory. c/o pain in bilateral foot x 2 days; reports no injury.
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
[2019-02-04] MEDS ORDERED: CEPHALEXIN500 MG ORAL (13:50)
[2019-02-04] MEDS ORDERED: [UNRECOGNIZED DRUG - OTHER] TOPIC (13:50)
[2019-02-04 15:13] VITALS: BP 138/68
--- NOTE | 2019-02-04 15:17 | NUR ---
ED Nurse Note: bo bagley done . 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
== END 2019-02-04 14:30 | disposition home or self-care (01) ==
LOC: EMR 13:22
DX: B35.3 Tinea pedis (principal); T69.022A Immersion foot, left foot, initial encounter; T69.021A Immersion foot, right foot, initial encounter; I10 Essential (primary) hypertension; E11.9 Type 2 diabetes mellitus without complications; Z86.73 Personal history of transient ischemic attack (TIA), and cerebral infarction without residual deficits; X58.XXXA Exposure to other specified factors, initial encounter; Y92.9 Unspecified place or not applicable
CPT/HCPCS: 99282

== ENCOUNTER 2019-02-10 12:01 | Emergency (ER) | payer MEDICARE, OTHER ==
[~2019-02-10] VITALS: Ht 177.8 cm; Wt 106.6 kg
[~2019-02-10 12:01] MED LIST changes: +CEPHALEXIN500 MG ORAL; +[UNRECOGNIZED DRUG - OTHER] TOPIC
[2019-02-10 12:10] VITALS: BP 130/67
--- NOTE | 2019-02-10 12:20 | NUR ---
ED Nurse Note: Patient walked in to ED due to skin problems on bilateral feet. patient reports hx of athletes feet. Patient reports he was seen by ARMANDO Payan on 02/04/19 for the same symptoms.
--- NOTE | 2019-02-10 12:58 | Emergency Room Report ---
History of Present Illness General Chief Complaint: Skin Rash/Abscess Source: Patient, Family Member, Medical Record Present Illness HPI This patient states he has had an ongoing fungal infection on both of his feet in between his toes. He presents at the instruction of his . His is very concerned because he continues to have skin changes between his toes and she is concerned that there is deeper wounds and because he is diabetic she is concerned about a "bone infection." She is requesting another course of antibiotics. She states that the first course of antibiotics helped significantly and the foot had been swollen and erythematous and she would like to have the course extended. They have not followed up with her primary care physician or a supply analyst. He denies fever or chills. He denies worsening of his skin. He has no other complaints. Allergies: Coded Allergies: NO KNOWN DRUG ALLERGIES (Unverified Allergy, Unknown, 01/24/15) Patient History Past Medical History: DM, HTN, GERD Social History: Denies: smoking, alcohol use, drug use Reviewed Nursing Documentation: PMH: Agreed; PSxH: Agreed Nursing Documentation-PMH Past Medical History: No History, Except For Hx Cardiac Problems: No Hx Hypertension: Yes Hx Pacemaker: No Hx Asthma: No Hx COPD: No Hx Diabetes: Yes Hx Cancer: No Hx Gastrointestinal Problems: No Hx Dialysis: No Hx Neurological Problems: Yes Hx Cerebrovascular Accident: Yes - 2018 Hx Seizures: No Review of Systems All Other Systems: negative except mentioned in HPI Physical Exam Vital Signs Date Time Temp Pulse Resp B/P (MAP) Pulse Ox O2 Delivery O2 Flow Rate FiO2 02/10/19 12:10 98.2 64 19 97 Room Air 02/10/19 12:10 130/67 Sp02 EP Interpretation: reviewed, normal General Appearance: no apparent distress, alert, GCS 15, non-toxic Head: normocephalic, atraumatic Eyes: bilateral eye normal inspection, bilateral eye PERRL ENT: hearing grossly normal, no angioedema, normal voice Neck: normal inspection Respiratory: no respiratory distress, no retraction, no accessory muscle use, speaking full sentences Rectal: deferred Musculoskeletal: back normal, gait/station normal, normal range of motion, non- tender Neurologic: alert, oriented x3, responsive, motor strength/tone normal, sensory intact, speech normal Psychiatric: judgement/insight normal, memory normal, mood/affect normal, no suicidal/homicidal ideation Skin: warm/dry, well hydrated, other - Mild maceration between toes bilaterally. No erythema, warmth or swelling. Medical Decision Making Diagnostic Impression: Primary Impression: Tinea pedis ER Course This patient has tinea pedis. The of the patient is very concerned about a bacterial infection. She states that the oral antibiotics that was taken previously significantly improved the skin findings. On my exam I do not identify any cellulitis. It is possible that there was a cellulitis previously that has resolved. This could potentially have seeded the bone given the thin skin and proximity to the bone in this area. Regardless, this should be followed by a supply analyst and the primary care physician as an outpatient. I will refill the patient's antifungal therapy. Patient is instructed to follow closely with the primary care physician and a supply analyst. Last Vital Signs Date Time Temp Pulse Resp B/P (MAP) Pulse Ox O2 Delivery O2 Flow Rate FiO2 02/10/19 12:10 98.2 64 19 130/67 97 Room Air Status: improved Disposition: HOME, SELF-CARE Condition: Improved Referrals: NOT CHOSEN IPA/,REFERRING (PCP) Liz Kern DO February 10, 2019 12:58
[2019-02-10] MEDS ORDERED: NYSTATIN15 G2 TP (13:38)
[2019-02-10] MEDS ORDERED: TERBINAFINE HCL30 GM TP (13:38)
[2019-02-10] MEDS ORDERED: CEPHALEXIN500 MG ORAL (13:38)
[2019-02-10 13:50] VITALS: BP 130/67
--- NOTE | 2019-02-10 13:50 | NUR ---
ER DISCHARGE NOTE: Patient is cleared to be discharged per CASANDRA Kern, pt is aox4, on room air, with stable vital signs. pt was given dc and prescription instructions, pt was able to verbalize understanding, pt id band removed without complications. pt is able to ambulate with steady gait. pt took all belongings.
== END 2019-02-10 13:50 | disposition home or self-care (01) ==
LOC: EMR 12:50
DX: B35.3 Tinea pedis (principal); I10 Essential (primary) hypertension; Z86.73 Personal history of transient ischemic attack (TIA), and cerebral infarction without residual deficits; E11.9 Type 2 diabetes mellitus without complications; K21.9 Gastro-esophageal reflux disease without esophagitis
CPT/HCPCS: 99282

== ENCOUNTER 2019-09-19 12:37 | Emergency (ER) | payer MEDICARE, OTHER ==
[~2019-09-19] VITALS: Ht 180.3 cm; Wt 104.3 kg
[~2019-09-19 12:37] MED LIST changes: +NYSTATIN15 G2 TP; +TERBINAFINE HCL30 GM TP
--- NOTE | 2019-09-19 12:58 | NUR ---
ED Nurse Note: Pt walked in from home c/o N/V since this morning. He vomited once in the AM. Pt denies abdominal pain or nausea at this time. Pt denies head trauma. Respirations even and unlabored on room air. Vital signs stable as documented.
[2019-09-19 13:01] VITALS: BP 129/75
--- NOTE | 2019-09-19 13:50 | Emergency Room Report ---
History of Present Illness General Chief Complaint: Vomiting Source: Patient Present Illness HPI Patient presents with complaints of nausea vomiting Patient has vomited 2 times this morning denies any abdominal pain denies any diarrhea denies any headache Denies any fevers or chills denies any focal weakness Patient reports that his daughter encouraged him to come to the hospital given the vomiting episode patient has had multiple abdominal surgical scars and surgeries in the past however reports that he is using the restroom appropriately and denies any abdominal pain Allergies: Coded Allergies: NO KNOWN DRUG ALLERGIES (Unverified Allergy, Unknown, 01/24/15) Patient History Past Medical History: see triage record Reviewed Nursing Documentation: PMH: Agreed; PSxH: Agreed Nursing Documentation-PMH Past Medical History: No History, Except For Hx Cardiac Problems: No Hx Hypertension: Yes Hx Pacemaker: No Hx Asthma: No Hx COPD: No Hx Diabetes: Yes Hx Cancer: No Hx Gastrointestinal Problems: No Hx Dialysis: No Hx Neurological Problems: Yes Hx Cerebrovascular Accident: Yes - 2018 Hx Seizures: No Review of Systems All Other Systems: negative except mentioned in HPI Physical Exam Vital Signs Date Time Temp Pulse Resp B/P (MAP) Pulse Ox O2 Delivery O2 Flow Rate FiO2 09/19/19 12:46 98.4 72 18 129/75 (93) 95 Room Air Sp02 EP Interpretation: reviewed, normal General Appearance: well appearing, no apparent distress Head: normocephalic, atraumatic Eyes: bilateral eye PERRL, bilateral eye EOMI ENT: hearing grossly normal, normal pharynx, TMs + canals normal, uvula midline Neck: full range of motion, supple, no meningismus, no bony tend Respiratory: lungs clear, normal breath sounds, no rhonchi, no respiratory distress, no retraction, no accessory muscle use Cardiovascular #1: normal peripheral pulses, regular rate, rhythm, no edema, no gallop, no JVD, no murmur Gastrointestinal: normal bowel sounds, non tender - Multiple abdominal surgical scars, soft, no mass, no organomegaly, non-distended, no guarding, no hernia, no pulsatile mass, no rebound Musculoskeletal: normal inspection Neurologic: motor strength/tone normal, 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, oriented x3 , sensory intact, responsive Psychiatric: mood/affect normal Skin: no rash Lymphatic: normal inspection, no adenopathy Medical Decision Making Diagnostic Impression: Primary Impression: Vomiting ER Course With the history exam and presentation, multiple differentials considered, including but not limited to appendicitis, gastritis, cholecystitis, diverticulitis Other process such as bowel obstruction also entertained Patient's abdomen at this time remains soft patient does report having appropriate bowel movements Initial blood work is appropriate Patient reevaluated feels improved I did contact the patient's daughter as well Notified her of the exam and work-up thus far Given the reevaluation patient not have initial imaging study done And will have Initial conservative outpatient trial and return with any worsening symptoms Labs Test 09/19/19 13:40 White Blood Count 7.6 K/UL (4.8-10.8) Red Blood Count 5.12 M/UL (4.70-6.10) Hemoglobin 15.1 G/DL (14.2-18.0) Hematocrit 44.2 % (42.0-52.0) Mean Corpuscular Volume 86 FL (80-99) Mean Corpuscular Hemoglobin 29.5 PG (27.0-31.0) Mean Corpuscular Hemoglobin Concent 34.1 G/DL (32.0-36.0) Red Cell Distribution Width 11.3 % (11.6-14.8) Platelet Count 214 K/UL (150-450) Mean Platelet Volume 7.3 FL (6.5-10.1) Neutrophils (%) (Auto) 77.9 % (45.0-75.0) Lymphocytes (%) (Auto) 13.7 % (20.0-45.0) Monocytes (%) (Auto) 7.1 % (1.0-10.0) Eosinophils (%) (Auto) 0.6 % (0.0-3.0) Basophils (%) (Auto) 0.7 % (0.0-2.0) Sodium Level 138 MMOL/L (136-145) Potassium Level 4.6 MMOL/L (3.5-5.1) Chloride Level 101 MMOL/L (98-107) Carbon Dioxide Level 25 MMOL/L (21-32) Anion Gap 12 mmol/L (5-15) Blood Urea Nitrogen 15 mg/dL (7-18) Creatinine 0.9 MG/DL (0.55-1.30) Estimat Glomerular Filtration Rate mL/min (>60) Glucose Level 185 MG/DL (74-106) Calcium Level 8.8 MG/DL (8.5-10.1) Total Bilirubin 0.9 MG/DL (0.2-1.0) Aspartate Amino Transf (AST/SGOT) 33 U/L (15-37) Alanine Aminotransferase (ALT/SGPT) 32 U/L (12-78) Alkaline Phosphatase 100 U/L (46-116) Troponin I 0.000 ng/mL (0.000-0.056) Total Protein 8.2 G/DL (6.4-8.2) Albumin 3.3 G/DL (3.4-5.0) Globulin 4.9 g/dL Albumin/Globulin Ratio 0.7 (1.0-2.7) EKG Diagnostic Results Rate: normal Rhythm: NSR ST Segments: no acute changes Rhythm Strip Diag. Results EP Interpretation: yes Rate: 77 Rhythm: NSR, no PVC's, no ectopy Last Vital Signs Date Time Temp Pulse Resp B/P (MAP) Pulse Ox O2 Delivery O2 Flow Rate FiO2 09/19/19 13:01 98.4 74 18 129/75 95 Room Air Status: improved Disposition: HOME, SELF-CARE Condition: Improved Scripts Ondansetron* (ZOFRAN*) 4 Mg Tablet 4 MG ORAL Q6H PRN for Nausea & Vomiting, #12 TAB Prov: Isadora Jay DO 09/19/19 Additional Instructions: Patient is provided with the discharge instructions notified to follow up with primary doctor in the next 2-3 days otherwise return to the er with any worsening symptoms. Please note that this report is being documented using [employer] technology. This can lead to erroneous entry secondary to incorrect interpretation by the dictating instrument. Isadora Jay DO Sep 19, 2019 13:50
[2019-09-19 14:00] LABS: BASOPHILS % (AUTO) 0.7 % (0.0-2.0); EOSINOPHILS % (AUTO) 0.6 % (0.0-3.0); HEMATOCRIT 44.2 % (42.0-52.0); HEMOGLOBIN 15.1 G/DL (14.2-18.0); LYMPHOCYTES % (AUTO) 13.7 % (20.0-45.0); MEAN CORPUSCULAR VOLUME 86 FL (80-99); MONOCYTES % (AUTO) 7.1 % (1.0-10.0); NEUTROPHILS % (AUTO) 77.9 % (45.0-75.0); PLATELET COUNT 214 K/UL (150-450); RED BLOOD COUNT 5.12 M/UL (4.70-6.10); RED CELL DISTRIBUTION WIDTH 11.3 % (11.6-14.8); WHITE BLOOD COUNT 7.6 K/UL (4.8-10.8)
[2019-09-19 14:13] LABS: ANION GAP 12 mmol/L (5-15); BLOOD UREA NITROGEN 15 mg/dL (7-18); CALCIUM 8.8 MG/DL (8.5-10.1); CARBON DIOXIDE 25 MMOL/L (21-32); CHLORIDE 101 MMOL/L (98-107); CREATININE 0.9 MG/DL (0.55-1.30); POTASSIUM 4.6 MMOL/L (3.5-5.1); SODIUM 138 MMOL/L (136-145)
[2019-09-19 14:18] LABS: ALANINE AMINOTRANSFERASE 32 U/L (12-78); ALBUMIN 3.3 G/DL (3.4-5.0); ALBUMIN/GLOBULIN RATIO 0.7 (1.0-2.7); ALKALINE PHOSPHATASE 100 U/L (46-116); ASPARTATE AMINO TRANSFERASE 33 U/L (15-37); BILIRUBIN,TOTAL 0.9 MG/DL (0.2-1.0)
[2019-09-19] MEDS ORDERED: ZOFRAN4 M3 ORAL (14:29)
--- NOTE | 2019-09-19 14:31 | NUR ---
ED Nurse Note: JO-ANND spoke to pt's daughter on the phone and spoke to pt as well to explain condition and discharge plan.
[2019-09-19 14:35] VITALS: BP 123/64
--- NOTE | 2019-09-19 14:36 | NUR ---
ED Nurse Note: Pt cleared by health care Provider for discharge after ERMD speaking to pt and daughter. DC instructions/prescription was given and explained to pt and verbalized understanding of teachings. All medical deviecs such as ID band removed. Pt is AAO x4, ambulatory and left with all personal belongings. daughter is taking pt to home with her vehicle.
== END 2019-09-19 14:40 | disposition home or self-care (01) ==
LOC: EMR 13:27
DX: R11.2 Nausea with vomiting, unspecified (principal); I10 Essential (primary) hypertension; E11.9 Type 2 diabetes mellitus without complications; Z86.73 Personal history of transient ischemic attack (TIA), and cerebral infarction without residual deficits
CPT/HCPCS: 36415; 80053; 82962; 84484; 85025; 93005; 99284; J7040